=== PATIENT | female | born 1935 | race Caucasian/White ===

== ENCOUNTER → 2016-10-21 | Outpatient (CLI) | payer OTHER, MEDICARE ==
[~2016-10-21] MED LIST: APIX1TAB3 PO; BIOT1CAP3 PO; BIOTCAP2 PO; DABI150C PO; DMD20 PO; FLUO20CA35 PO; LEVO75TA PO; LISI-461 PO; LORA-741 PO; MULT-506 PO; POTA10CA28 PO; SYN75 PO; TORS20TA2 PO; TPRSR/25 PO; TYLOTC500 PO
--- NOTE | 2016-10-21 16:40 | MAMMOGRAPHY REPORT ---
BILATERAL DIGITAL SCREENING MAMMOGRAM WITH CAD: 10/21/2016 CLINICAL HISTORY: Routine screening. Patient has no complaints. TECHNIQUE: Current study was also evaluated with a Computer Aided Detection (CAD) system. Bilatera l CC and MLO views were obtained. COMPARISON: Comparison is made to exams dated: 05/21/2014 mammogram, 07/10/2012 mammogram, 07/07/2011 m ammogram, 07/06/2010 mammogram - [facility], and 07/03/2009. BREAST COMPOSITION: There are scattered areas of fibroglandular density in both breasts. FINDINGS: There is a nodular 5 mm asymmetry seen within the left lateral breast on the cc view only , which may represent normal overlapping fibroglandular tissue although spot compression tomosynthes is views and possible breast ultrasound are recommended for further evaluation. The remainder of both breasts are stable compared to prior exams, without suspicious masses, calcifi cations, or areas of architectural distortion noted. Bilateral benign-appearing calcifications, pre dominantly vascular calcifications, are again noted. IMPRESSION: ACR BI-RADS CATEGORY 0: INCOMPLETE EVALUATION: NEED ADDITIONAL IMAGING EVALUATION Left lateral breast asymmetry, for which additional imaging evaluation is recommended. The patient will be called to schedule an appointment. Approximately 10% of breast cancers are not detected with mammography. A negative mammographic repor t should not delay biopsy if a clinically suggestive mass is present. Vera Ascencio M.D. ah/:10/21/2016 15:50:35 Transfer Car Operator: Ct Shahid RT(R)(M), [facility] letter sent: Addl Imaging 0 BI-RADS Code: ACR BI-RADS Category 0: Incomplete Evaluation: Need Additional Imaging Evaluation
== END | disposition home or self-care (01) ==
LOC: C.MAMM 10:58
PROVIDERS: ATTEND Internal Medicine
DX: Z12.31 Encounter for screening mammogram for malignant neoplasm of breast (principal); R92.8 Other abnormal and inconclusive findings on diagnostic imaging of breast

== ENCOUNTER → 2016-10-21 | Outpatient (CLI) | payer OTHER, MEDICARE | END | disposition home or self-care (01) | LOC: C.LABSPEC 12:15 | PROVIDERS: ATTEND Internal Medicine | DX: R19.4 Change in bowel habit (principal) ==

== ENCOUNTER → 2016-11-04 | Outpatient (CLI) | payer OTHER, MEDICARE ==
[~2016-11-04] MED LIST changes: -LORA-741 PO
--- NOTE | 2016-11-04 14:17 | MAMMOGRAPHY REPORT ---
UNILATERAL LEFT DIGITAL DIAGNOSTIC MAMMOGRAM TOMOSYNTHESIS AND TARGETED LEFT ULTRASOUND: 11/04/2016 CLINICAL HISTORY: Callback from screening mammogram for left breast asymmetry. TECHNIQUE: Breast tomosynthesis in addition to standard 2D mammography was performed. Left CC and MLO 2-D and tomosynthesis spot compression views were obtained. COMPARISON: Comparison is made to exams dated: 10/21/2016 mammogram, 05/21/2014 mammogram, 07/10/2012 ma mmogram, 07/07/2011 mammogram, 07/06/2010 mammogram - [facility], and 07/03/2009. BREAST COMPOSITION: There are scattered areas of fibroglandular density in the left breast. FINDINGS: The previously described nodular asymmetry seen within the left lateral breast on the CC view only effaces to a baseline appearance on the additional views, and is felt to represent normal fibroglandular tissue. No discrete mammographic mass or other suspicious finding is seen on the [place] osynthesis images. Targeted ultrasound was performed of the left lateral breast in the region of the mammographic asymm etry. Sonographically normal tissue is seen, without evidence of a mass or other suspicious sonogra phic abnormality. IMPRESSION: ACR BI-RADS CATEGORY 2: BENIGN, TARGETED ULTRASOUND ACR BI-RADS CATEGORY 2: BENIGN The left breast asymmetry effaces on the additional views, without corresponding sonographic abnorma lity evident. The asymmetry is benign and compatible with normal fibroglandular tissue. There is n o mammographic or targeted sonographic evidence of malignancy. A 1 year screening mammogram is recom mended. The patient has been verbally notified of the results. Approximately 10% of breast cancers are not detected with mammography. A negative mammographic repor t should not delay biopsy if a clinically suggestive mass is present. Vera Ascencio M.D. ah/:11/04/2016 10:04:22 Foundry Supervisor: Ct PALACIOS(Leslie)(Ana), [facility] letter sent: Normal 1/2 BI-RADS Code: ACR BI-RADS Category 2: Benign Ultrasound BI-RADS: ACR BI-RADS Category 2: Benign
== END | disposition home or self-care (01) ==
LOC: C.MAMM 09:30
PROVIDERS: ATTEND Internal Medicine
DX: R92.8 Other abnormal and inconclusive findings on diagnostic imaging of breast (principal)

== ENCOUNTER → 2016-11-15 | Outpatient (CLI) | payer OTHER, MEDICARE ==
[2016-11-15 14:47] LABS: HEMATOCRIT 43.9 % (37-47); MEAN CELL VOLUME 90.1 fL (80-100); MEAN CORPUSCULAR HGB CONC 33.3 g/dl (32-36); MEAN PLATELET VOLUME 9.9 fL (7.4-10.4); PLATELET COUNT 244 K/uL (130-400); RED BLOOD COUNT 4.87 M/uL (4.2-5.4); WHITE BLOOD COUNT 5.88 K/uL (4.8-10.8)
[2016-11-15 17:17] LABS: BLOOD UREA NITROGEN 22 mg/dl (7-18); GLUCOSE 114 mg/dl (70-99)
[2016-11-15 17:18] LABS: BUN/CREATININE RATIO 15.7 (10-20); CALCIUM 9.5 mg/dl (8.5-10.1); CARBON DIOXIDE 26 mmol/L (21-32); CHLORIDE 103 mmol/L (98-107); POTASSIUM 4.2 mmol/L (3.5-5.1); SODIUM 140 mmol/L (136-145)
[2016-11-15 17:23] LABS: ALB/GLOB RATIO 0.9 (0.9-2); ALKALINE PHOSPHATASE 95 U/L (45-117); ALT/SGPT 23 U/L (12-78); AST/SGOT 21 U/L (15-37)
== END | disposition home or self-care (01) ==
LOC: C.LAB1850 13:55
PROVIDERS: ATTEND Internal Medicine Cardiovascular Disease
DX: I10 Essential (primary) hypertension (principal); I50.32 Chronic diastolic (congestive) heart failure; I48.91 Unspecified atrial fibrillation; R07.89 Other chest pain; Z79.01 Long term (current) use of anticoagulants; Z51.81 Encounter for therapeutic drug level monitoring

== ENCOUNTER 2017-01-09 12:34 | Emergency (ER) | payer OTHER, MEDICARE ==
[~2017-01-09] VITALS: Ht 162.6 cm; Wt 101.0 kg
[~2017-01-09 12:34] MED LIST changes: -APIX1TAB3 PO; -BIOT1CAP3 PO; -LEVO75TA PO; -TORS20TA2 PO
[2017-01-09 12:40] VITALS: TEMP 36.8; Ht 162.6 cm; Wt 101.0 kg
--- NOTE | 2017-01-09 13:05 | EMERGENCY ROOM VISIT NOTE ---
History Report prepared by Jair: Janel Harper Under the Supervision of: Dr. Yuan Martins D.O. First contact with patient: 12:50 Chief Complaint: BLEEDING Stated Complaint: BLEEDING Nursing Triage Summary: Triage note: pt reports "i went to the bathroom this mornin and wipes and noticed some blood but i have a small hemorhoid and then i took a shower and wiped between my legs and there was blood on the towel." pt reports she takes a blood thinner daily. pt reports the believes bleeding is vaginal. 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 The patient states that this morning she noticed that she had some bleeding that she believed was vaginal when she was going to the bathroom and then after she showered she noticed more blood. The patient states that she takes a blood thinner causing her to be concerned and come into the ED today. The patient denies any abdominal pain, pelvic pain, nausea, vomiting or leg swelling. The patient states that she takes Metoprol and lisinopril for her chronic atrial fibrillation. The patient states that has a medical history including CHF and arthritis. The patient states that she has never had a hysterectomy but has had a cholecystectomy as well as three caesarean sections. Source of History: patient Onset: few hours DRILLING RIG OPERATOR Position: other (vaginal) Timing: other (episode) Associated Symptoms: No abdominal pain, No nausea, No vomiting Note: Patient denies pelvic pain, leg swelling. Review of Systems See HPI for pertinent positives & negatives. A total of 10 systems reviewed and were otherwise negative. Past Medical & Surgical Medical Problems: (1) Atrial fibrillation (2) HTN (hypertension) Surgical Problems: (1) Hx of cholecystectomy Family History FH: HTN (hypertension) FH: gallbladder disease FH: heart disease Social History Smoking Status: Never Smoker Marital Status: Housing Status: lives alone Occupation Status: retired Current/Historical Medications Scheduled Acetaminophen (Tylenol), 500 MG PO BID Apixaban (Eliquis), 5 MG PO BID Biotin (Biotin), 5,000 MCG PO DAILY Fluoxetine (Prozac), 20 MG PO DAILY Levothyroxine Sodium (Synthroid), 75 MCG PO DAILY Lisinopril (Zestril), 10 MG PO DAILY Metoprolol Succinate (Metoprolol Succinate ER), 25 MG PO DAILY Multivitamin (Multivitamin), 1 TAB PO DAILY Potassium Chloride (Micro-K Ext Rel), 10 MEQ PO DAILY Torsemide (Demadex), 20 MG PO DAILY Allergies Coded Allergies: Latex1 -Allergic Contact Dermititis (Verified Allergy, Intermediate, RASH , HIVES, 01/09/17) Meperidine (Verified Allergy, Unknown, ITCH, 01/09/17) Morphine (Verified Allergy, Unknown, 0, 01/09/17) CONFUSION Oxycodone (Verified Allergy, Unknown, 0, 01/09/17) CONFUSION Codeine (Verified Adverse Reaction, Mild, NAUSEA, 01/09/17) CONFUSION Physical Exam Vital Signs Date Time Temp Pulse Resp B/P Pulse Ox O2 Delivery O2 Flow Rate FiO2 01/09/17 15:15 78 18 148/89 01/09/17 14:59 71 27 01/09/17 14:54 73 27 01/09/17 14:49 72 27 01/09/17 14:44 72 21 01/09/17 14:39 72 22 01/09/17 14:34 88 18 140/89 94 01/09/17 14:34 82 20 140/89 95 Room Air 01/09/17 14:29 72 15 01/09/17 14:27 79 01/09/17 12:40 36.8 84 18 151/88 98 Room Air Physical Exam GENERAL: Patient is awake, alert, and in no acute distress. Patient is resting comfortably and showing no signs of anxiety EYES: The conjunctivae are clear. The pupils are round and reactive. EARS, NOSE, MOUTH AND THROAT: The nose is without any evidence of any deformity. Mucous membranes are moist tongue is midline NECK: The neck is nontender and supple. RESPIRATORY: Normal respiratory effort is noted there is no evidence of wheezing rhonchi or rales CARDIOVASCULAR: Tachycardic and irregular, no definite murmur noted to auscultation. no rubs or gallops normal S1 normal S2 GASTROINTESTINAL: The abdomen is soft. Bowel sounds are present in all quadrants. Abdomen is nontender RECTAL: reveal light brown stool that was heme negative. External hemorrhoids noted with no active bleeding. PELVIC: There was dried blood noted on external genitalia. Digital exam did not reveal active bleeding. MUSCULOSKELETAL/EXTREMITIES: There is no evidence of gross deformity full range of motion is noted in the hips and shoulders SKIN: There is no obvious evidence of any rash. There are no petechiae, pallor or cyanosis noted. NEUROLOGIC: Patient is awake alert and oriented x3 strength is symmetric patellar reflexes are 2+ bilaterally Medical Decision & Procedures ER Provider Diagnostic Interpretation: US results as stated below per my review and radiologist interpretation. PELVIC ULTRASOUND CLINICAL HISTORY: Vaginal bleeding. COMPARISON STUDY: Pelvic ultrasound March 07, [address] of the pelvis April 18, 2015. TECHNIQUE: Transabdominal sonography of the pelvis was performed. The patient deferred transvaginal imaging. FINDINGS: This exam was markedly compromised due to suboptimal penetration related to lack of transvaginal imaging. The uterus measured approximately 7.6 x 3.8 x 6 cm. Note was made of an apparent 4.2 cm abnormality within the uterine fundus. The appearance is similar to pelvic ultrasound March 07, 2015. This is indeterminate. The endometrium is not well evaluated on this exam. The left ovary was not visualized. The right ovary was unremarkable. There is no free fluid. No adnexal masses were identified. IMPRESSION: 1. Study significantly compromised due to lack of transvaginal imaging. 2. Nearly nondiagnostic evaluation of the uterus. The endometrium is not well evaluated on this exam. Equivocal 4.2 cm fundal mass which appears similar to pelvic ultrasound of March 07, 2015. 3. Nonvisualization of the left ovary. Electronically signed by: Jeyson Melendez M.D. 01/09/2017 2:24 PM Dictated Date/Time: 01/09/2017 2:20 PM Laboratory Results 01/09/17 13:10 Red Blood Count 4.80, Mean Corpuscular Volume 90.4, Mean Corpuscular Hemoglobin 30.8, Mean Corpuscular Hemoglobin Concent 34.1, Mean Platelet Volume 10.1, Neutrophils (%) (Auto) 62.3, Lymphocytes (%) (Auto) 25.4, Monocytes (%) (Auto) 8.9, Eosinophils (%) (Auto) 2.4, Basophils (%) (Auto) 0.8, Neutrophils # (Auto) 3.90, Lymphocytes # (Auto) 1.59, Monocytes # (Auto) 0.56, Eosinophils # (Auto) 0.15, Basophils # (Auto) 0.05 01/09/17 13:10 Test 01/09/17 13:00 01/09/17 13:10 Urine Color YELLOW Urine Appearance CLEAR (CLEAR) Urine pH 6.5 (4.5-7.5) Urine Specific [place] 1.008 (1.000-1.030) Urine Protein NEG (NEG) Urine Glucose (UA) NEG (NEG) Urine Ketones NEG (NEG) Urine Occult Blood 2+ (NEG) Urine Nitrite NEG (NEG) Urine Bilirubin NEG (NEG) Urine Urobilinogen NEG (NEG) Urine Leukocyte Esterase NEG (NEG) Urine WBC (Auto) 0 /hpf (0-5) Urine RBC (Auto) 10-30 /hpf (0-4) Urine Hyaline Casts (Auto) 0 /lpf (0-5) Urine Epithelial Cells (Auto) 0-5 /lpf (0-5) Urine Bacteria (Auto) NEG (NEG) White Blood Count 6.26 K/uL (4.8-10.8) Red Blood Count 4.80 M/uL (4.2-5.4) Hemoglobin 14.8 g/dL (12.0-16.0) Hematocrit 43.4 % (37-47) Mean Corpuscular Volume 90.4 fL (80-100) Mean Corpuscular Hemoglobin 30.8 pg (25-34) Mean Corpuscular Hemoglobin Concent 34.1 g/dl (32-36) Platelet Count 224 K/uL (130-400) Mean Platelet Volume 10.1 fL (7.4-10.4) Neutrophils (%) (Auto) 62.3 % Lymphocytes (%) (Auto) 25.4 % Monocytes (%) (Auto) 8.9 % Eosinophils (%) (Auto) 2.4 % Basophils (%) (Auto) 0.8 % Neutrophils # (Auto) 3.90 K/uL (1.4-6.5) Lymphocytes # (Auto) 1.59 K/uL (1.2-3.4) Monocytes # (Auto) 0.56 K/uL (0.11-0.59) Eosinophils # (Auto) 0.15 K/uL (0-0.5) Basophils # (Auto) 0.05 K/uL (0-0.2) RDW Standard Deviation 47.3 fL (36.4-46.3) RDW Coefficient of Variation 14.3 % (11.5-14.5) Immature Granulocyte % (Auto) 0.2 % Immature Granulocyte # (Auto) 0.01 K/uL (0.00-0.02) Prothrombin Time 13.4 SECONDS (9.0-12.0) Prothromb Time International Ratio 1.2 (0.9-1.1) Activated Partial Thromboplast Time 28.7 SECONDS (21.0-31.0) Partial Thromboplastin Ratio 1.1 Anion Gap 6.0 mmol/L (3-11) Est Creatinine Clear Calc Drug Dose 37.7 ml/min Estimated GFR () 41.3 Estimated GFR (Non- 35.6 BUN/Creatinine Ratio 19.0 (10-20) Calcium Level 9.1 mg/dl (8.5-10.1) Total Bilirubin 0.6 mg/dl (0.2-1) Direct Bilirubin 0.2 mg/dl (0-0.2) Aspartate Amino Transf (AST/SGOT) 19 U/L (15-37) Alanine Aminotransferase (ALT/SGPT) 23 U/L (12-78) Alkaline Phosphatase 94 U/L (45-117) Total Protein 7.5 gm/dl (6.4-8.2) Albumin 3.5 gm/dl (3.4-5.0) Laboratory results per my review. ED Course 1251: The patient was evaluated in room A3. A complete history and physical examination were performed. 1450: I discussed the case with Dr. Orozco INVERTED BLOCK OPERATOR. She states that the patient can follow up in the office. 1500: Upon reevaluation, the patient is resting comfortably. I discussed the results and treatment plan with her. She verbalized agreement of the treatment plan. The patient was discharged home. Medical Decision Differential diagnosis: Etiologies such as ectopic , dysfunction uterine bleeding, bleeding dyscrasia, trauma, infection, as well as others were entertained. Nursing notes reviewed. Additional history is obtained from the patient's family members. The patient's previous radiographic studies were reviewed. The patient is a 81-year-old female who presented to the emergency department for vaginal bleeding. The patient currently takes anticoagulation for atrial fibrillation. She did not have ongoing bleeding. The bleeding appeared to be vaginal in nature. The patient's vital signs and hemoglobin were stable. The patient was found have a possible uterine abnormality on ultrasound which could explain the patient's bleeding. I discussed the patient's laboratory and radiographic studies with her and her family members. I also discussed her case with the on-call [facility] INVERTED BLOCK OPERATOR physician. At this time they have agreed to see the patient in follow-up for possible biopsy or further testing. The patient was encouraged to continue all medications as prescribed. She was also encouraged to follow-up with INVERTED BLOCK OPERATOR this week. She was also encouraged to return to the emergency apartment immediately if symptoms change worsen or the need arises including ongoing and worsening bleeding dizziness upon standing or if any other worrisome symptoms develop. Consults Time Called: [phone] Consulting Physician: Dr. Orozco INVERTED BLOCK OPERATOR Returned Call: [phone] I discussed the case with Dr. Orozco INVERTED BLOCK OPERATOR. She states that the patient can follow up in the office. Impression Primary Impression: Dysfunctional uterine bleeding Scribe Attestation The scribe's documentation has been prepared under my direction and personally reviewed by me in its entirety. I confirm that the note above accurately reflects all work, treatment, procedures, and medical decision making performed by me. Departure Information Dispostion Home / Self-Care Referrals Phillip Kim M.D. (PCP) Forms HOME CARE DOCUMENTATION FORM, IMPORTANT VISIT INFORMATION Patient Instructions My [facility] [address] Additional Instructions Continue all medications as prescribed. Call the INVERTED BLOCK OPERATOR physician in the morning to schedule a follow-up appointment.
[2017-01-09 13:23] LABS: BASO % 0.8 %; BASO ABS # 0.05 K/uL (0-0.2); COMPLETE YES; EOS % 2.4 %; HEMATOCRIT 43.4 % (37-47); IG% 0.2 %; LYMPH % 25.4 %; LYMPH ABS # 1.59 K/uL (1.2-3.4); MEAN CELL VOLUME 90.4 fL (80-100); MEAN CORPUSCULAR HEMOGLOBIN 30.8 pg (25-34); MEAN CORPUSCULAR HGB CONC 34.1 g/dl (32-36); MEAN PLATELET VOLUME 10.1 fL (7.4-10.4); MONO % 8.9 %; NEUT % 62.3 %; PLATELET COUNT 224 K/uL (130-400); WHITE BLOOD COUNT 6.26 K/uL (4.8-10.8)
[2017-01-09 13:24] LABS: URINE APPEARANCE CLEAR (CLEAR); URINE BILIRUBIN NEG (NEG); URINE COLOR YELLOW; URINE EPITHELIAL CELL AUTO 0-5 /lpf (0-5); URINE NITRITE NEG (NEG); URINE PH 6.5 (4.5-7.5); URINE SPECIFIC GRAVITY 1.008 (1.000-1.030); UROBILINOGEN NEG (NEG)
[2017-01-09 13:25] LABS: MANUAL MICROSCOPIC REQUIRED? NO; REVIEW REQ? NO
[2017-01-09] MEDS ORDERED: LEVO75TA PO (13:25)
[2017-01-09] MEDS ORDERED: TORS20TA2 PO (13:25)
[2017-01-09] MEDS ORDERED: BIOT1CAP3 PO (13:26)
[2017-01-09] MEDS ORDERED: APIX1TAB3 PO (13:26)
[2017-01-09 13:34] LABS: INR 1.2 (0.9-1.1); PARTIAL THROMBOPLASTIN RATIO 1.1; PROTHROMBIN TIME (PATIENT) 13.4 SECONDS (9.0-12.0)
[2017-01-09 13:41] LABS: CALCIUM 9.1 mg/dl (8.5-10.1); CREATININE 1.4 mg/dl (0.60-1.20); POTASSIUM 4.4 mmol/L (3.5-5.1)
--- NOTE | 2017-01-09 14:25 | DIAGNOSTIC IMAGING REPORT ---
PELVIC ULTRASOUND CLINICAL HISTORY: Vaginal bleeding. COMPARISON STUDY: Pelvic ultrasound March 07, [address] of the pelvis April 18, 2015. TECHNIQUE: Transabdominal sonography of the pelvis was performed. The patient deferred transvaginal imaging. FINDINGS: This exam was markedly compromised due to suboptimal penetration related to lack of transvaginal imaging. The uterus measured approximately 7.6 x 3.8 x 6 cm. Note was made of an apparent 4.2 cm abnormality within the uterine fundus. The appearance is similar to pelvic ultrasound March 07, 2015. This is indeterminate. The endometrium is not well evaluated on this exam. The left ovary was not visualized. The right ovary was unremarkable. There is no free fluid. No adnexal masses were identified. IMPRESSION: 1. Study significantly compromised due to lack of transvaginal imaging. 2. Nearly nondiagnostic evaluation of the uterus. The endometrium is not well evaluated on this exam. Equivocal 4.2 cm fundal mass which appears similar to pelvic ultrasound of March 07, 2015. 3. Nonvisualization of the left ovary. Electronically signed by: Jeyson Melendez M.D. 01/09/2017 2:24 PM Dictated Date/Time: 01/09/2017 2:20 PM
[2017-01-09 14:34] VITALS: O2SAT 94
[2017-01-09 15:15] VITALS: BP 148/89; PULSE 78
[2017-07-20] MEDS ORDERED: LORA-741 PO (08:08)
[2017-07-20] MEDS ORDERED: LISI-461 PO ×2 (08:11→15:25)
== END 2017-01-09 15:17 | disposition home or self-care (01) ==
LOC: C.EDB 12:36 → C.EDA 15:17
DX: N93.8 Other specified abnormal uterine and vaginal bleeding (principal); I10 Essential (primary) hypertension; I48.91 Unspecified atrial fibrillation; Z90.49 Acquired absence of other specified parts of digestive tract; Z79.899 Other long term (current) drug therapy; Z88.5 Allergy status to narcotic agent; Z88.8 Allergy status to other drugs, medicaments and biological substances; Z91.040 Latex allergy status; Z82.49 Family history of ischemic heart disease and other diseases of the circulatory system; Z83.79 Family history of other diseases of the digestive system

== ENCOUNTER → 2017-01-31 | Outpatient (CLI) | payer OTHER, MEDICARE ==
[~2017-01-31] MED LIST changes: +APIX1TAB3 PO; +BIOT1CAP3 PO; -BIOTCAP2 PO; -DABI150C PO; -DMD20 PO; +LEVO75TA PO; +LORA-741 PO; -SYN75 PO; +TORS20TA2 PO
== END | disposition home or self-care (01) ==
LOC: C.PATHSPEC 10:53
PROVIDERS: ATTEND Obstetrics & Gynecology
DX: N95.0 Postmenopausal bleeding (principal)

== ENCOUNTER → 2017-03-31 | Outpatient (CLI) | payer OTHER, MEDICARE | END | disposition home or self-care (01) | LOC: C.LAB 14:15 | PROVIDERS: ATTEND Obstetrics & Gynecology | DX: N95.0 Postmenopausal bleeding (principal); N83.209 Unspecified ovarian cyst, unspecified side ==

== ENCOUNTER → 2017-05-31 | Outpatient (CLI) | payer OTHER, MEDICARE ==
--- NOTE | 2017-05-31 17:01 | DIAGNOSTIC IMAGING REPORT ---
CHEST 2 VIEWS ROUTINE CLINICAL HISTORY: Atypical chest pain and shortness of breath COMPARISON STUDY: 08/23/2015 FINDINGS: The heart is enlarged. There is no focal pulmonary consolidation. There is mild interstitial prominence but no overt failure.. There are no pleural effusions. There is minor basilar atelectasis.[ IMPRESSION: Cardiomegaly. No evidence of focal pulmonary consolidation Electronically signed by: Jose Leo M.D. 05/31/2017 5:00 PM Dictated Date/Time: 05/31/2017 4:59 PM
== END | disposition home or self-care (01) ==
LOC: C.RAD 16:26
PROVIDERS: ATTEND Internal Medicine
DX: R06.00 Dyspnea, unspecified (principal); I51.7 Cardiomegaly; E03.9 Hypothyroidism, unspecified; R53.83 Other fatigue; I48.91 Unspecified atrial fibrillation

== ENCOUNTER → 2017-05-31 | Outpatient (CLI) | payer OTHER, MEDICARE ==
[2017-05-31 18:14] LABS: BASO % 0.6 %; BASO ABS # 0.04 K/uL (0-0.2); COMPLETE YES; EOS % 1.7 %; HEMATOCRIT 44.8 % (37-47); IG% 0.2 %; LYMPH % 28.8 %; LYMPH ABS # 1.91 K/uL (1.2-3.4); MEAN CELL VOLUME 90.7 fL (80-100); MEAN CORPUSCULAR HEMOGLOBIN 30.8 pg (25-34); MEAN CORPUSCULAR HGB CONC 33.9 g/dl (32-36); MEAN PLATELET VOLUME 10.7 fL (7.4-10.4); MONO % 9.3 %; NEUT % 59.4 %; PLATELET COUNT 216 K/uL (130-400); RED BLOOD COUNT 4.94 M/uL (4.2-5.4); WHITE BLOOD COUNT 6.64 K/uL (4.8-10.8)
[2017-05-31 18:21] LABS: ALT/SGPT 28 U/L (12-78); BLOOD UREA NITROGEN 19 mg/dl (7-18); BUN/CREATININE RATIO 14.3 (10-20); CALCIUM 9.8 mg/dl (8.5-10.1); CARBON DIOXIDE 30 mmol/L (21-32); CHLORIDE 105 mmol/L (98-107); GLUCOSE 95 mg/dl (70-99); MAGNESIUM 2.2 mg/dl (1.8-2.4); POTASSIUM 3.8 mmol/L (3.5-5.1); SODIUM 140 mmol/L (136-145)
[2017-05-31 18:31] LABS: ALB/GLOB RATIO 0.9 (0.9-2); ALKALINE PHOSPHATASE 120 U/L (45-117); AST/SGOT 28 U/L (15-37)
== END | disposition home or self-care (01) ==
LOC: C.LABSPEC 17:48
PROVIDERS: ATTEND Internal Medicine
DX: E03.9 Hypothyroidism, unspecified (principal); R53.83 Other fatigue; I48.91 Unspecified atrial fibrillation

== ENCOUNTER → 2017-06-09 | Outpatient (CLI) | payer OTHER, MEDICARE ==
[2017-06-09 09:36] LABS: HEMATOCRIT 46.6 % (37-47); MEAN CORPUSCULAR HEMOGLOBIN 30.9 pg (25-34); MEAN CORPUSCULAR HGB CONC 33.9 g/dl (32-36); MEAN PLATELET VOLUME 10.5 fL (7.4-10.4); PLATELET COUNT 216 K/uL (130-400); RED BLOOD COUNT 5.12 M/uL (4.2-5.4)
[2017-06-09 09:46] LABS: BLOOD UREA NITROGEN 18 mg/dl (7-18); BUN/CREATININE RATIO 12.6 (10-20); CALCIUM 9.3 mg/dl (8.5-10.1); CARBON DIOXIDE 30 mmol/L (21-32); CHLORIDE 105 mmol/L (98-107); GLUCOSE 116 mg/dl (70-99); POTASSIUM 4.1 mmol/L (3.5-5.1); SODIUM 141 mmol/L (136-145)
== END | disposition home or self-care (01) ==
LOC: C.LAB1850 08:28
PROVIDERS: ATTEND Internal Medicine Cardiovascular Disease
DX: I10 Essential (primary) hypertension (principal); I50.32 Chronic diastolic (congestive) heart failure; R06.09 Other forms of dyspnea; I48.91 Unspecified atrial fibrillation; R07.89 Other chest pain; Z79.01 Long term (current) use of anticoagulants

== ENCOUNTER → 2017-06-30 | Outpatient (CLI) | payer OTHER, MEDICARE ==
--- NOTE | 2017-07-01 06:58 | PULMONARY FUNCTION TEST ---
CLINICAL DATA: A 81-year-old female with a weight of 222 pounds and height of 64 inches, referred by Dr. Vergara for evaluation of dyspnea. Spirometry pre- and post-bronchodilator and DLCO was performed along with oxygen saturation at rest and with exercise. Lung volumes were attempted but could not be completed by the patient because of technical reasons. FINDINGS: Pre-bronchodilator spirometry was within normal limits. FVC was 87% of predicted. FEV1 was 90% of predicted. [id number] was 83% of predicted. There was no significant improvement after inhaled bronchodilator. Diffusion capacity was moderately reduced at 58% of predicted with a normal DLCO/VA. The patient had a resting O2 saturation of 97%. After ambulating for 6 minutes, the patient had an O2 saturation of 96% while exerting and after rest, 98%. IMPRESSION: No evidence of significant restrictive or obstructive lung disease on spirometry. Diffusion capacity was moderately reduced. Normal O2 saturation at rest and with exercise. MTDD
== END | disposition home or self-care (01) ==
LOC: C.RC 12:57
PROVIDERS: ATTEND Internal Medicine
DX: R06.02 Shortness of breath (principal)

== ENCOUNTER → 2017-07-08 | Outpatient (CLI) | payer OTHER, MEDICARE ==
[2017-07-08 11:25] LABS: FERRITIN 62.1 ng/ml (8.0-388.0); THYROID STIMULATING HORMONE 0.782 uIu/ml (0.300-4.500)
[2017-07-12 06:12] LABS: ALBUMIN 3.5 G/DL (3.8-4.8); CREATININE UR 257 MG/DL (20-320); GAMMA GLOBULIN 1.1 G/DL (0.8-1.7); TOTAL PROTEIN 6.7 G/DL (6.2-8.3)
== END | disposition home or self-care (01) ==
LOC: C.LAB1850 09:29
PROVIDERS: ATTEND Internal Medicine Cardiovascular Disease
DX: I42.9 Cardiomyopathy, unspecified (principal); I50.42 Chronic combined systolic (congestive) and diastolic (congestive) heart failure

== ENCOUNTER → 2017-07-19 | Outpatient (CLI) | payer OTHER, MEDICARE ==
[2017-07-19 17:43] LABS: HEMATOCRIT 43.6 % (37-47); MEAN CORPUSCULAR HEMOGLOBIN 29.5 pg (25-34); MEAN CORPUSCULAR HGB CONC 32.1 g/dl (32-36); MEAN PLATELET VOLUME 10.7 fL (7.4-10.4); PLATELET COUNT 210 K/uL (130-400); RED BLOOD COUNT 4.74 M/uL (4.2-5.4); WHITE BLOOD COUNT 5.43 K/uL (4.8-10.8)
[2017-07-19 17:55] LABS: INR 1.2 (0.9-1.1); PROTHROMBIN TIME (PATIENT) 12.7 SECONDS (9.0-12.0)
[2017-07-19 17:56] LABS: BLOOD UREA NITROGEN 22 mg/dl (7-18); BUN/CREATININE RATIO 14.5 (10-20); CALCIUM 9.2 mg/dl (8.5-10.1); CARBON DIOXIDE 29 mmol/L (21-32); CHLORIDE 105 mmol/L (98-107); GLUCOSE 88 mg/dl (70-99); POTASSIUM 4.1 mmol/L (3.5-5.1); SODIUM 140 mmol/L (136-145)
== END | disposition home or self-care (01) ==
LOC: C.LABBFT 14:20
PROVIDERS: ATTEND Internal Medicine Cardiovascular Disease
DX: Z01.818 Encounter for other preprocedural examination (principal)

== ENCOUNTER → 2017-07-20 | Day surgery (SDC) | payer OTHER, MEDICARE ==
[~2017-07-20] VITALS: Ht 162.6 cm; Wt 101.3 kg
[~2017-07-20] MED LIST changes: +ACETAMINOPHEN 325 MG TAB PO PRN; +ASPIRIN 81 MG CHEW ONE; +FENTANYL CITRATE INJ 50 MCG/1 ML 2 ML VIAL ONE; +HEPARIN SOD (PORCINE) 1000 UNIT/ML 10 ML VIAL ONE; +MIDAZOLAM HCL 1 MG/ML 2ML VIAL ONE; +NITROGLYCERIN/D5W 100MCG/ML 20ML SYR ONE; +NiCARDipine HCL INJ 2.5 MG/ML 10 ML AMP ONE; +ONDANSETRON INJ 2 MG/ML 2 ML VIAL IV PRN; +SODIUM CHLORIDE 0.9% 1000ML 1,000 ML IV SCH; +SODIUM CHLORIDE 0.9% 1000ML 250 ML IV PRN
[2017-07-20 07:27] VITALS: BP 132/70; PULSE 73; TEMP 36.8; O2SAT 96; Ht 162.6 cm; Wt 101.3 kg
--- NOTE | 2017-07-20 12:31 | Procedure Note ---
Pre-Mod Sedation Assessment General Date of Moderate Sedation: Jul 20, 2017. Vital Signs: Vital Signs Past 12 Hours Date Time Temp Pulse Resp B/P (MAP) Pulse Ox O2 Delivery O2 Flow Rate FiO2 07/20/17 07:27 36.8 73 16 132/70 96 Room Air Review Cardiovascular: no murmur Abdomen: non tender, soft Lungs: lungs clear Pre-Sedation Airway Assessment Oral Cavity: Dentures Short Thick Neck: No Hx of Sleep Apnea: No Smoking Status: Former Smoker Procedure Planning Contraindications-for Mod Sed: None Yes Notes The planned sedation has been discussed with the patient and consent obtained. I have identified the patient, determined the appropriateness of sedation and have assessed the patient immediately prior to the procedure. All medicine(s) and interventions are by my order.
--- NOTE | 2017-07-20 12:31 | History & Physical Bridge Note ---
H&P Re-Evaluation Bridge Note: I have examined the patient, reviewed the History & Physical and in the interval since the performance of the History & Physical I have noted the following changes of clinical significance: No changes noted
--- NOTE | 2017-07-20 14:57 | Procedure Note ---
Post-Mod Sedation Assessment General Date of Moderate Sedation Jul 20, 2017. Vital Signs: Vital Signs Past 12 Hours Date Time Temp Pulse Resp B/P (MAP) Pulse Ox O2 Delivery O2 Flow Rate FiO2 07/20/17 14:35 63 16 130/68 (88) 95 Room Air 07/20/17 14:20 36.6 63 16 132/69 (90) 94 Room Air 07/20/17 07:27 36.8 73 16 132/70 96 Room Air Review - Discharge Criteria Vital Signs Stable: Yes Alert/Oriented/Conversant: Yes Returned to Baseline Mental St: Yes Nausea Absent/Minimal: Yes Pain/Discomfort/Absent/Minimal: Yes Normal/Baseline Respirations: Yes Active Bleeding?: No
--- NOTE | 2017-07-20 15:23 | Cardiac Catheterization ---
Procedure Note Procedure Date Jul 20, 2017. Pre-Procedure Diagnosis Cardiomyopathy AUC Score 7 Post-Procedure Diagnosis Normal Coronary Arteries, Elevated Intracardiac Pressures Procedure(s) Performed Coronary Angiography, Left Heart Cath, Right Heart Cath It Support Specialist Dr. Hathaway Repair Department Supervisor(s) Tr Estimated Blood Loss < 30 ml Medication(s) Fentanyl, Heparin, Nicardipine, Versed, Lidocaine 1% Summary of Findings Coronary angiography: 1. Left main coronary artery: The LMCA is long in length. No angiographic evidence of CAD. 2. Left anterior descending: The LAD is medium to large in caliber and extends to the apex. It gives rise to a very large and long D1. No significant CAD noted angiographically. 3. Circumflex: The circumflex vessel distally becomes a very small caliber AV groove vessel. Large caliber OM1 with lateral branches. No CAD noted within the circumflex system. 4. Ramus intermedius: The ramus intermedius vessel is a large caliber and long vessel with lateral branch. No CAD noted angiographically. 5. Right coronary artery: The RCA is large and dominant. It gives rise to a large PDA and large posterior lateral branch with medium caliber branch. No angiographic evidence of CAD within the RCA system. Left heart catheterization: 1. Left ventriculography was not performed to reduce contrast exposure. 2. No significant aortic stenosis. 3. Mildly elevated LVEDP; LVEDP 14mmHg (this is after approximately 6 hours of normal saline for prehydration at 125 milliliters/hour). Right heart catheterization: 1. Right heart catheterization was performed via the right brachiocephalic vein without a sheath. Seven [place] latex-free right heart catheter was easily passed over a wire. The balloon became nonfunctional while within the right heart and therefore a pulmonary capillary wedge pressure was unable to be obtained. PA oxygen saturation was collected, however there was a malfunction with the equipment and therefore PA O2 saturation is unavailable. 2. Moderate pulmonary hypertension. PA pressure 50/15 with a mean of 27mmHg. 3. Moderately elevated right ventricular pressure. RV pressure 50/1 with an RVEDP of 10mmHg. 4. Mildly elevated right atrial pressure. A-wave 12; V-wave 12; mean pressure 11mmHg. 5. Cardiac output via thermodilution was 3.6 L/min with a cardiac index of 1.8 L /min/m2. Procedural notes: 1. Selective coronary angiography of the left main coronary artery was performed successfully with AL1 6 [place] diagnostic catheter. 2. Selective coronary angiography of the RCA was performed successfully with JR4 6 [place] diagnostic catheter. Sedation start time: 1:02 p.m. Sedation end time: 2:18 p.m. Impression: 1. No CAD. 2. No aortic stenosis. 3. Mildly elevated LVEDP in the setting of holding diuretic and iatrogenic hydration. 4. Moderate pulmonary hypertension. 5. Left-sided filling pressures not significantly elevated to suggest the etiology of her significant subjective symptoms. Plan: 1. Continue medical therapy for mildly reduced LV systolic function. 2. Evaluation for noncardiac dyspnea. Hemodynamics Rest Ao: 134/59 Final Ao: 129/55 LV: 129/6/14 Recommendations Medical therapy and/or Counseling Specimens None Radiation Exposure (mGy) 1166 mGy. Fluoro time 16.4 min. Contrast (mls) 45 ml Procedural Complication(s) None Disposition [employer] Holding/Recovery ACC Data Cardiac Status Clinical evaluation leading to the procedure CAD Presntation: No Sxs, no angina Anginal Classification: No symptoms Heart Failure: No Cardiogenic Shock w/in 24Hrs: No Cardiac Arrest w/in 24Hrs: No Imaging studies past 6 months: Yes (echo) Stress studies past 6 months: No Standard Exercise Stress Test: No Stress Echocardiogram: No Stress Testing w/SPECT MPI: No Cardiac CTA: No Coronary Anatomy Dominant: Right Left Main (% Stenosis): Normal LAD (% Stenosis): Normal D1 (% Stenosis): Normal Circumflex (% Stenosis): Normal OM1 (% Stenosis): Normal RCA (% Stenosis): Normal R PDA (% Stenosis): Normal R PL1 (% Stenosis): Normal Ramus (% Stenosis): Normal Left Ventricular Angiography EF (%): n/a Diagnostic Physician's Name: Al Hathaway MD Status: Elective Closure Device Percutaneous Entry Location: Radial Closure Device: Radial Band Recommendations: Medical therapy and/or Counseling
--- NOTE | 2017-07-20 15:30 | Discharge Instructions ---
Discharge Instructions Date of Service Jul 20, 2017. Visit Reason for Visit: Cardiac catheterization to evaluate shortness of breath. Discharge Discharge Diagnosis / Problem: Nonischemic cardiomyopathy. Pulmonary hypertension. Discharge Goals Goal(s): Diagnostic testing Medications Restart Stopped Medication(s): Resume all your medications. No changes made today. Eliquis should be resumed tomorrow (07/21/17) morning. Activity Recommendations Activity Limitations: per Instructions/Follow-up section Anesthesia . Post Anesthesia Instructions: If you have had General Anesthesia or IV Sedation: * Do not drive today. * Resume driving when surgeon permits. * Do not make important decisions or sign legal documents today. * Call surgeon for: 1. Temperature elevations greater than 101 degrees F. 2. Uncontrollable pain. 3. Excessive bleeding. 4. Persistent nausea and vomiting. 5. Medication intolerance (nausea, vomiting or rash). * For nausea and vomiting use only clear liquids such as: tea, soda, bouillon until nausea subsides, then gradually increase diet as tolerated. * If you have any concerns or questions, call your surgeon's office. If physician is unavailable and it is an emergency, call 911 or go to the nearest emergency room. . Instructions / Follow-Up Instructions / Follow-Up Follow up: 1. Follow up with Dr. Hathaway on August 10, 2017 Wed at 08:45 AM. ACTIVITY RECOMMENDATIONS: Excess manipulation of the wrist should be avoided for the next 24-48 hours. * No lifting over 2 pounds (approximately a 1/2 gallon of milk) with the utilized arm for 24 hours. * No strenuous activity such as bowling or tennis for 3 days. * Keep the site of the procedure covered with a bandage for 24 hours. *You may shower the day after the procedure. Do not take a tub bath or submerge the puncture site in water for the next 3 days. *Do not operate any motorized equipment for 3 days. SPECIAL CARE INSTRUCTIONS: The site may be slightly bruised and sore following your procedure. Should any of the following occur, contact the DrNeda who performed your procedure. 1. Redness/inflammation, swelling, chills, or fever, or colored drainage at procedure site within 3-7 days after your procedure. 2. Coldness, discoloration, ongoing numbness, severe pain, or swelling. Expect mild tingling of hand and tenderness at the puncture site for up to three days. If this persists beyond three days, or other symptoms develop, notify the Dr. who performed your procedure. BLEEDING: If the procedure site on your wrist begins to bleed, do not panic 1. Place 1 or 2 fingers firmly just slightly above the insertion site to stop the bleeding. You may be able to feel your pulse as you hold pressure. 2. Lift your finger after 5 minutes to see if the bleeding has stopped. 3. Once the bleeding has stopped, gently wipe the wrist area clean with a bandage. * If the bleeding from your wrist does not stop after 10 minutes, or if there is a large amount of bleeding or spurting, call 911 (do not drive yourself to the hospital). SKIN IRRITATION: * You may experience some redness and/or swelling in the area where radiation was administered. If any skin irritation occurs, please contact your family physician. FOLLOW UP VISIT: Keep any scheduled doctor appointments. Diet Recommendations Recommended Home Diet: resume previous diet Pending Studies Studies pending at discharge: no Medical Emergencies . Who to Call and When: Medical Emergencies: If at any time you feel your situation is an emergency, please call 911 immediately. . Non-Emergent Contact Non-Emergency issues call your: Primary Care Provider, Sign Writer Letterer Or Painter . . "Provider Documentation" section prepared by Al Steward. .
[2017-07-20 16:55] VITALS: BP 122/60; PULSE 68; O2SAT 96
== END | disposition home or self-care (01) ==
LOC: C.CATH 06:35
PROVIDERS: ATTEND Internal Medicine Cardiovascular Disease
DX: I42.9 Cardiomyopathy, unspecified (principal); I50.42 Chronic combined systolic (congestive) and diastolic (congestive) heart failure; I48.91 Unspecified atrial fibrillation; I11.0 Hypertensive heart disease with heart failure; E03.9 Hypothyroidism, unspecified; F32.9 Major depressive disorder, single episode, unspecified; F41.9 Anxiety disorder, unspecified; Z98.890 Other specified postprocedural states; Z79.01 Long term (current) use of anticoagulants; Z90.89 Acquired absence of other organs; Z87.891 Personal history of nicotine dependence; Z82.49 Family history of ischemic heart disease and other diseases of the circulatory system; Z80.3 Family history of malignant neoplasm of breast; Z83.3 Family history of diabetes mellitus

== ENCOUNTER → 2017-08-10 | Outpatient (CLI) | payer OTHER, MEDICARE ==
[~2017-08-10] MED LIST changes: -ACETAMINOPHEN 325 MG TAB PO PRN; -ASPIRIN 81 MG CHEW ONE; -FENTANYL CITRATE INJ 50 MCG/1 ML 2 ML VIAL ONE; -HEPARIN SOD (PORCINE) 1000 UNIT/ML 10 ML VIAL ONE; -MIDAZOLAM HCL 1 MG/ML 2ML VIAL ONE; -NITROGLYCERIN/D5W 100MCG/ML 20ML SYR ONE; -NiCARDipine HCL INJ 2.5 MG/ML 10 ML AMP ONE; -ONDANSETRON INJ 2 MG/ML 2 ML VIAL IV PRN; -SODIUM CHLORIDE 0.9% 1000ML 1,000 ML IV SCH; -SODIUM CHLORIDE 0.9% 1000ML 250 ML IV PRN
[2017-08-10 10:46] LABS: BLOOD UREA NITROGEN 14 mg/dl (7-18); BUN/CREATININE RATIO 11.6 (10-20); CALCIUM 9.5 mg/dl (8.5-10.1); CARBON DIOXIDE 30 mmol/L (21-32); CHLORIDE 105 mmol/L (98-107); CREATININE 1.25 mg/dl (0.60-1.20); GLUCOSE 107 mg/dl (70-99); SODIUM 142 mmol/L (136-145)
== END | disposition home or self-care (01) ==
LOC: C.LAB1850 09:31
PROVIDERS: ATTEND Internal Medicine Cardiovascular Disease
DX: I48.91 Unspecified atrial fibrillation (principal); R06.09 Other forms of dyspnea; I42.9 Cardiomyopathy, unspecified; I50.42 Chronic combined systolic (congestive) and diastolic (congestive) heart failure; I11.0 Hypertensive heart disease with heart failure

== ENCOUNTER → 2017-12-07 | Outpatient (CLI) | payer OTHER, MEDICARE ==
[2017-12-07 17:45] LABS: HEMOGLOBIN 15.8 g/dL (12.0-16.0); MEAN CELL VOLUME 90.4 fL (80-100); MEAN CORPUSCULAR HEMOGLOBIN 30.4 pg (25-34); MEAN CORPUSCULAR HGB CONC 33.6 g/dl (32-36); MEAN PLATELET VOLUME 10.6 fL (7.4-10.4); PLATELET COUNT 216 K/uL (130-400); RED CELL DISTRIBUTION WIDTH CV 15.3 % (11.5-14.5); RED CELL DISTRIBUTION WIDTH SD 50.6 fL (36.4-46.3)
[2017-12-07 18:00] LABS: BLOOD UREA NITROGEN 25 mg/dl (7-18); CALCIUM 9.7 mg/dl (8.5-10.1); CARBON DIOXIDE 30 mmol/L (21-32); CREATININE 1.49 mg/dl (0.60-1.20); GLUCOSE 103 mg/dl (70-99); POTASSIUM 3.7 mmol/L (3.5-5.1); SODIUM 139 mmol/L (136-145)
== END | disposition home or self-care (01) ==
LOC: C.LABBFT 13:58
PROVIDERS: ATTEND Internal Medicine Cardiovascular Disease
DX: I10 Essential (primary) hypertension (principal); I50.32 Chronic diastolic (congestive) heart failure; I48.91 Unspecified atrial fibrillation; Z79.01 Long term (current) use of anticoagulants; R06.09 Other forms of dyspnea

== ENCOUNTER → 2017-12-12 | Outpatient (CLI) | payer OTHER, MEDICARE ==
[2017-12-12 15:00] LABS: BLOOD UREA NITROGEN 22 mg/dl (7-18); CALCIUM 9.2 mg/dl (8.5-10.1); CARBON DIOXIDE 26 mmol/L (21-32); CREATININE 1.55 mg/dl (0.60-1.20); GLUCOSE 106 mg/dl (70-99); SODIUM 138 mmol/L (136-145)
[2017-12-13 06:52] LABS: HEMOGLOBIN A1C 6.9 % (4.5-5.6)
== END | disposition home or self-care (01) ==
LOC: C.LABSPEC 14:30
PROVIDERS: ATTEND Internal Medicine
DX: R73.9 Hyperglycemia, unspecified (principal); I10 Essential (primary) hypertension

== ENCOUNTER 2017-12-26 15:22 | Inpatient (IN) | payer OTHER, MEDICARE ==
[~2017-12-26] VITALS: Ht 165.1 cm; Wt 100.4 kg
[2017-12-26] MEDS ORDERED: LEVO100T7 PO (15:46)
[2017-12-26] MEDS ORDERED: TPRSR/100 PO (15:47)
[2017-12-26] MEDS ORDERED: LSN20 PO (15:47)
[2017-12-26] MEDS ORDERED: LSX20 PO (15:48)
--- NOTE | 2017-12-26 16:17 | DIAGNOSTIC IMAGING REPORT ---
CHEST ONE VIEW PORTABLE HISTORY: Atypical CHEST PAIN COMPARISON: Chest 05/31/2017. FINDINGS: The heart remains enlarged. No focal lung consolidations to suggest pneumonia. No evidence for pulmonary edema. No pleural effusions. No pneumothorax. IMPRESSION: Stable cardiomegaly. Electronically signed by: Carmine Michel M.D. 12/26/2017 4:16 PM Dictated Date/Time: 12/26/2017 4:14 PM
[2017-12-26 16:33] LABS: BASO % 0.6 %; BASO ABS # 0.03 K/uL (0-0.2); EOS % 2.1 %; HEMATOCRIT 45.1 % (37-47); HEMOGLOBIN 15.1 g/dL (12.0-16.0); IG# 0.01 K/uL (0.00-0.02); LYMPH % 14.9 %; LYMPH ABS # 0.71 K/uL (1.2-3.4); MEAN CELL VOLUME 90.4 fL (80-100); MEAN CORPUSCULAR HEMOGLOBIN 30.3 pg (25-34); MEAN CORPUSCULAR HGB CONC 33.5 g/dl (32-36); MEAN PLATELET VOLUME 9.6 fL (7.4-10.4); MONO % 17.7 %; MONO ABS # 0.84 K/uL (0.11-0.59); NEUT % 64.5 %; NEUT ABS # 3.06 K/uL (1.4-6.5); PLATELET COUNT 180 K/uL (130-400); RED CELL DISTRIBUTION WIDTH CV 15.8 % (11.5-14.5); RED CELL DISTRIBUTION WIDTH SD 51.9 fL (36.4-46.3); WHITE BLOOD COUNT 4.75 K/uL (4.8-10.8)
[2017-12-26 16:44] LABS: INR 1.6 (0.9-1.1); PTT PATIENT 31.5 SECONDS (21.0-31.0)
[2017-12-26 16:53] LABS: ALBUMIN 3.1 gm/dl (3.4-5.0); CALCIUM 9.3 mg/dl (8.5-10.1); CREATININE 1.36 mg/dl (0.60-1.20); POTASSIUM 3.9 mmol/L (3.5-5.1)
--- NOTE | 2017-12-26 16:54 | EMERGENCY ROOM VISIT NOTE ---
History Report prepared by Jair: Marv Astudillo Under the Supervision of: Dr. Ender Rodriguez M.D. First contact with patient: 15:42 Chief Complaint: COUGH Stated Complaint: COUGH, SICK TO STOMACH, DIARHEA History of Present Illness The patient is an 82 year old female who presents to the Emergency Room with complaints of worsening shortness of breath and a cough that began a few days ago. The patient's son states that they have been on a cruise ship for the past 7 days. While on this cruise the patient developed a cough and became unusually short of breath. While on the cruise the patient also noticed some worsening swelling in her lower extremities. There has been no chest pain. The patient is on an oral Lasix commonly, and doubled up on this dosage Las Tuesday 4 days ago as well as today. Today it looks as thought the swelling in her legs has improved. The patient also note that her bowel movement today was liquid diarrhea, and she also vomited. She is on Eliquis secondary to ah history of atrial fibrillation. The patient had a echocardiogram recently which showed "fluid around her heart" per the son. Source of History: patient, family Onset: A few days ago Timing: worsening Associated Symptoms: + SOB, + vomiting, + diarrhea, No chest pain Note: Lower Extremity swelling Review of Systems See HPI for pertinent positives & negatives. A total of 10 systems reviewed and were otherwise negative. Past Medical & Surgical Medical Problems: (1) Atrial fibrillation (2) HTN (hypertension) Surgical Problems: (1) Hx of cholecystectomy Old medical records were reviewed. Nurse's notes were reviewed and I agree with. Family History FH: HTN (hypertension) FH: gallbladder disease FH: heart disease Social History Smoking Status: Former Smoker Marital Status: Housing Status: lives alone Occupation Status: retired Current/Historical Medications Scheduled Acetaminophen (Tylenol), 500 MG PO BID Apixaban (Eliquis), 5 MG PO BID Fluoxetine (Prozac), 20 MG PO DAILY Levothyroxine Sodium (Levothyroxine Sodium), 100 MCG PO DAILY Lisinopril (Lisinopril), 20 MG PO DAILY Metoprolol Succinate (Metoprolol Succinate ER), 100 MG PO DAILY Multivitamin (Multivitamin), 1 TAB PO DAILY Potassium Chloride (Micro-K Ext Rel), 10 MEQ PO DAILY Torsemide (Demadex), 20 MG PO DAILY Scheduled PRN Lorazepam (Ativan), 0.5 MG PO DAILY PRN for PRN Allergies Coded Allergies: Latex1 -Allergic Contact Dermititis (Verified Allergy, Intermediate, RASH , HIVES, 12/26/17) Meperidine (Verified Allergy, Unknown, ITCH, 12/26/17) Morphine (Verified Allergy, Unknown, 0, 12/26/17) CONFUSION Oxycodone (Verified Allergy, Unknown, 0, 12/26/17) CONFUSION Codeine (Verified Adverse Reaction, Mild, NAUSEA, 12/26/17) CONFUSION Physical Exam Vital Signs Date Time Temp Pulse Resp B/P (MAP) Pulse Ox O2 Delivery O2 Flow Rate FiO2 12/26/17 17:32 79 18 147/90 98 Room Air 12/26/17 16:41 91 12/26/17 15:45 99 Nasal Cannula 2.0 12/26/17 15:45 99 Nasal Cannula 2.0 12/26/17 15:43 99 Nasal Cannula 2.0 12/26/17 15:42 85 Room Air 12/26/17 15:27 36.9 94 24 132/61 95 Room Air Physical Exam General: Mildly tachypneic appearing older female in no acute distress. HEENT: Normal cephalic atraumatic. Pupils are equal round and reactive to light. Extraocular movements are intact. Oropharynx is pink with moist mucous membranes. No swelling of the mouth lips or tongue. Neck: Supple with a midline trachea. No meningeal signs or stiffness, no JVD or bruits. No Stridor. Chest: Clear to auscultation bilaterally. No wheezes or rhonchi. No increased work of breathing. Heart: regular rate and rhythm. Abdomen: Soft nontender, nondistended without rebound guarding or rigidity. Extremities: No cyanosis clubbing. 1+ pedal edema bilaterally. No calf tenderness or assymetry Spine/Back. Non tender to palpation. No CVA tenderness Skin: Good turgor without rashes. Neurologic exam: Cranial nerves two through 12 are intact. Motor and sensation are intact and symmetrical throughout. Medical Decision & Procedures ER Provider Diagnostic Interpretation: Radiology results as stated below per my review and radiologist interpretation: CHEST ONE VIEW PORTABLE HISTORY: Atypical CHEST PAIN COMPARISON: Chest 05/31/2017. FINDINGS: The heart remains enlarged. No focal lung consolidations to suggest pneumonia. No evidence for pulmonary edema. No pleural effusions. No pneumothorax. IMPRESSION: Stable cardiomegaly. Electronically signed by: Carmine Michel M.D. 12/26/2017 4:16 PM Dictated Date/Time: 12/26/2017 4:14 PM Laboratory Results 12/26/17 16:20 Red Blood Count 4.99, Mean Corpuscular Volume 90.4, Mean Corpuscular Hemoglobin 30.3, Mean Corpuscular Hemoglobin Concent 33.5, Mean Platelet Volume 9.6, Neutrophils (%) (Auto) 64.5, Lymphocytes (%) (Auto) 14.9, Monocytes (%) (Auto) 17.7, Eosinophils (%) (Auto) 2.1, Basophils (%) (Auto) 0.6, Neutrophils # (Auto ) 3.06, Lymphocytes # (Auto) 0.71, Monocytes # (Auto) 0.84, Eosinophils # (Auto ) 0.10, Basophils # (Auto) 0.03 12/26/17 16:20 Test 12/26/17 16:20 12/26/17 16:22 White Blood Count 4.75 K/uL (4.8-10.8) Red Blood Count 4.99 M/uL (4.2-5.4) Hemoglobin 15.1 g/dL (12.0-16.0) Hematocrit 45.1 % (37-47) Mean Corpuscular Volume 90.4 fL (80-100) Mean Corpuscular Hemoglobin 30.3 pg (25-34) Mean Corpuscular Hemoglobin Concent 33.5 g/dl (32-36) Platelet Count 180 K/uL (130-400) Mean Platelet Volume 9.6 fL (7.4-10.4) Neutrophils (%) (Auto) 64.5 % Lymphocytes (%) (Auto) 14.9 % Monocytes (%) (Auto) 17.7 % Eosinophils (%) (Auto) 2.1 % Basophils (%) (Auto) 0.6 % Neutrophils # (Auto) 3.06 K/uL (1.4-6.5) Lymphocytes # (Auto) 0.71 K/uL (1.2-3.4) Monocytes # (Auto) 0.84 K/uL (0.11-0.59) Eosinophils # (Auto) 0.10 K/uL (0-0.5) Basophils # (Auto) 0.03 K/uL (0-0.2) RDW Standard Deviation 51.9 fL (36.4-46.3) RDW Coefficient of Variation 15.8 % (11.5-14.5) Immature Granulocyte % (Auto) 0.2 % Immature Granulocyte # (Auto) 0.01 K/uL (0.00-0.02) Prothrombin Time 16.4 SECONDS (9.0-12.0) Prothromb Time International Ratio 1.6 (0.9-1.1) Activated Partial Thromboplast Time 31.5 SECONDS (21.0-31.0) Partial Thromboplastin Ratio 1.2 D-Dimer 420 ug/L FEU (0-500) Anion Gap 9.0 mmol/L (3-11) Est Creatinine Clear Calc Drug Dose 39.7 ml/min Estimated GFR () 42.5 Estimated GFR (Non- 36.7 BUN/Creatinine Ratio 12.6 (10-20) Calcium Level 9.3 mg/dl (8.5-10.1) Total Bilirubin 1.5 mg/dl (0.2-1) Direct Bilirubin 0.6 mg/dl (0-0.2) Aspartate Amino Transf (AST/SGOT) 40 U/L (15-37) Alanine Aminotransferase (ALT/SGPT) 30 U/L (12-78) Alkaline Phosphatase 178 U/L (45-117) Total Creatine Kinase 117 U/L (26-192) Creatine Kinase MB 1.6 ng/ml (0.5-3.6) Creatine Kinase MB Ratio 1.4 (0-3.0) Pro-B-Type Natriuretic Peptide 2224 pg/ml (0-1800) Total Protein 7.1 gm/dl (6.4-8.2) Albumin 3.1 gm/dl (3.4-5.0) Lipase 144 U/L (73-393) Influenza Type A Antigen Neg for Influ A (NEG) Influenza Type B Antigen Neg for Influ B (NEG) Bedside Troponin I 0.060 ng/ml (0-0.045) Laboratory studies as stated above per my review. ECG Per My Interpretation Indication: SOB/dyspnea Rate (beats per minute): 81 Rhythm: atrial fibrillation Findings: other (LAD, poor baseline, poor R-wave progression, No JOSE ANGEL/STD) Comparison ECG Date: 08/24/2015 Change: no significant change ED Course 1542: Past medical records reviewed. The patient was evaluated in room B2, and a complete history and physical examination were performed. 1608: I discussed the case with Cardiopulmonary - They will come to the department to do an Echocardiogram. 1611: I discussed the case with Dr. Camara - Cardiology. He will evaluate the patient's echo. 1651: I discussed the case with Dr. Camara - Cardiology. He states there is no effusion on the echocardiogram. 1725: I discussed the case with Dr. Vergara - Internal Medicine. He agrees that the patient should stay for observation. 1824: I discussed the case with Dr. Lesvia Fisher - [facility] Hospitalist. He will evaluate the patient for further treatment. Medical Decision Differential diagnosis includes; congestive heart failure, pericardial effusion , pulmonary embolism, pneumonia, pneumothorax, anemia, electrolyte or metabolic abnormality. This patient comes in as described above. She has had shortness of breath and was noted to be significantly hypoxemic with walking. She was okay at rest but this is definitely exertional. She just came back from a cruise. She has had a small pericardial effusion was rechecked by an echo on 15 December prior to going. during the cruise, she pretty much laid around and was tired the whole time and short of breath. She has had no chest pain. She has had a cough. she has also had some nausea, vomiting, and diarrhea. IV access established, blood work was obtained. EKG shows A. fib which is chronic for her and there is no definite ischemic changes were any rate control issues. Chest x-ray was clear and does not show congestive heart failure, pneumonia, or pneumothorax. D- dimer is within normal limits which makes PE highly unlikely. I did an echo in the emergency department which does not show a pericardial effusion, she does have LVH please refer to the report. Her BNP was also elevated and she does have peripheral edema definitely has a CHF component although she may be more intravascularly dry with the nausea, vomiting, diarrhea. She has nothing to suggest sepsis. Influenza swab was negative. I do think she needs to be admitted for further treatment and evaluation of her hypoxemia. I have consulted the [facility] hospitalist, Dr. Bedolla, to see her in the emergency department. Medication Reconcilliation Current Medication List: was personally reviewed by me Blood Pressure Screening Patient's blood pressure: Elevated blood pressure Referred to PCP. Consults Time Called: 1819 Consulting Physician: Dr. Lesvia RASHID Hospitalist Returned Call: 1823 I discussed the case with Dr. Lesvia RASHID Hospitalist. He will evaluate the patient for further treatment. Impression Primary Impression: Hypoxemia Additional Impression: SOB (shortness of breath) Scribe Attestation The scribe's documentation has been prepared under my direction and personally reviewed by me in its entirety. I confirm that the note above accurately reflects all work, treatment, procedures, and medical decision making performed by me. Departure Information Dispostion Being Evaluated By Hospitalist Referrals Phillip Kim M.D. (PCP) Patient Instructions [facility] Health Problem Qualifiers
[2017-12-26 16:56] LABS: INFLUENZA B ANTIGEN Neg for Influ B (NEG)
[2017-12-26 16:58] LABS: CKMB 1.6 ng/ml (0.5-3.6); TOTAL PROTEIN 7.1 gm/dl (6.4-8.2)
--- NOTE | 2017-12-26 18:25 | ECHOCARDIOGRAM REPORT ---
*NOTICE TO RECEIVING CONSTITUTION PARTY AGENCY This information is strictly Confidential and protected under [place] law. [place] law prohibits you from making any further disclosure of this information unless further disclosure is expressly permitted by the written consent of the person to whom it pertains or is authorized by law. A general authorization for the release of medical or other information is not sufficient for this purpose. Hospital accepts no responsibility if the information is made available to any other person, INCLUDING THE PATIENT. Interpretation Summary * Conclusions -- * 1. Small LV cavity. Severe concentric LVH. * 2. Normal LV systolic function. LVEF 55-60 %. No regional wall motion abnormalities. * 3. Normal RV size and function. * 4. Moderate to severe TR. Mild pulmonary hypertension. Estimated PASP 46 mmHg. * 5. Trivial pericardial effusion * 6. Aortic valve sclerosis without stenosis * 7. Compared with prior study on 03/30/2013: LVH now severe, tricuspid regurgitation moderate to severe Procedure Details * A complete two-dimensional transthoracic echocardiogram was performed (2D, M-mode, Doppler and color flow Doppler). Left Ventricle * The left ventricular cavity is small. * There is severe concentric left ventricular hypertrophy. * Ejection Fraction = 55-60%. * No regional wall motion abnormalities noted. Right Ventricle * The right ventricle is grossly normal size. * There is a pacemaker lead in the right ventricle. * The right ventricular systolic function is normal as assessed by tricuspid annular plane systolic excursion (TAPSE) (normal >1.5 cm). Atria * The left atrium is moderately dilated. * The right atrium is moderately dilated. Mitral Valve * The mitral valve is grossly normal. * There is no mitral valve stenosis. * There is trace mitral regurgitation. Tricuspid Valve * There is moderate to severe tricuspid regurgitation. * Right ventricular systolic pressure is elevated at 40-50mmHg. Aortic Valve * The aortic valve opens well. * The aortic valve is trileaflet. * Aortic valve sclerosis mild, without significant aortic valvular stenosis. * No hemodynamically significant valvular aortic stenosis. * There is no significant aortic regurgitation. Pulmonic Valve * The pulmonary valve is inadequately visualized, but the Doppler data is adequate for interpretation. * Pulmonic stenosis is absent. * Trace pulmonic valvular regurgitation. Great Vessels * The aortic root and proximal ascending aorta are normal sized. Pericardium/Pleural * Trivial pericardial effusion Great Vessels * Dilated inferior vena cava with reduced collapsability with sniff indicates an elevated right atrial pressure of 15 mmHg MMode 2D Measurements and Calculations IVSd 2.3 cm IVSs 2.6 cm LVIDd 3.6 cm LVIDs 2.7 cm LVPWd 1.9 cm LVPWs 2.2 cm IVS/LVPW 1.2 FS 24.5 % EDV(Teich) 54.8 ml ESV(Teich) 27.7 ml EF(Teich) 49.5 % EDV(cubed) 47.0 ml ESV(cubed) 20.3 ml EF(cubed) 56.9 % % IVS thick 16.3 % % LVPW thick 17.7 % LV mass(C)d 349.7 grams LV mass(C)dI 166.3 grams/m\S\2 LV mass(C)s 345.2 grams LV mass(C)sI 164.2 grams/m\S\2 SV(Teich) 27.1 ml SI(Teich) 12.9 ml/m\S\2 SV(cubed) 26.8 ml SI(cubed) 12.7 ml/m\S\2 Ao root diam 2.7 cm Ao root area 5.6 cm\S\2 LA dimension 5.4 cm LA/Ao 2.0 LVOT diam 1.9 cm LVOT area 2.8 cm\S\2 Doppler Measurements and Calculations MV E max aimee 77.6 cm/sec MV P1/2t max aimee 91.8 cm/sec MV P1/2t 58.5 msec MVA(P1/2t) 3.8 cm\S\2 MV dec slope 460.1 cm/sec\S\2 MV dec time 0.14 sec Ao V2 max 97.7 cm/sec Ao max PG 3.8 mmHg Ao max PG (full) 2.0 mmHg ANA(V,A) 1.9 cm\S\2 ANA(V,D) 1.9 cm\S\2 LV V1 max PG 1.8 mmHg LV V1 max 66.7 cm/sec PA V2 max 69.0 cm/sec PA max PG 1.9 mmHg PI max aimee 193.3 cm/sec PI max PG 14.9 mmHg PI dec slope 197.8 cm/sec\S\2 PI P1/2t 286.2 msec TR max aimee 241.7 cm/sec
[2017-12-26] MEDS ORDERED: LORAZEPAM 0.5 MG TAB PO PRN (20:00)
[2017-12-26] MEDS ORDERED: MAGNESIUM HYDROXIDE SUSP 30 ML UDC PO PRN (20:15)
[2017-12-26] MEDS ORDERED: ALUMINUM/MAGNESIUM/SIMETH (MAALOX MAX) 30 ML UDC PO PRN (20:15)
[2017-12-26] MEDS ORDERED: ONDANSETRON INJ 2 MG/ML 2 ML VIAL IV PRN (20:15)
[2017-12-26] MEDS ORDERED: POLYETHYLENE (MIRALAX) 17 GM PACK PO PRN (20:15)
--- NOTE | 2017-12-26 20:24 | History and Physical ---
History & Physical Date & Time of Service: Dec 26, 2017 at 20:05 Chief Complaint: Cough, Sick To Stomach, Diarrhea Primary Care Physician: Phillip Kim M.D. History of Present Illness Source: patient, family 82 y/o F Hx AF, HTN, HPL, hypothyroidism, CKD III, severe tricuspid regurge, chronic diastolic dysfunction. Presents with progressive exertional dyspnea, dry cough, nausea and diarrhea. She was on a cruise this past week but states her SOB began before then. She denies CP, fevers, N/V or diaphoresis. She states she has had increased ankle edema for a few weeks. Initial labs reveal a mild trop elevation. CXR was WNL. An echo was obtained in the ER revealing LVH, elevated atrial pressures, severe tricuspid regurge, normal systolic function. The pt exhibited hypoxia with ambulation in the ER. She is maintaining an adequate sat at rest. Past Medical/Surgical History 1) HTN 2) HPL 3) Chronic diastolic dysfunction 4) Chronic AF 5) Hypothyroidism 6) Severe tricuspid regurge 7) Anxiety/depression 8) Cardiac cath 08/02 - normal coronaries Surgical: 1) C sxn x 2 2) BL cataract surgery 3) BL carpal tunnel release 4) Cholecystectomy Family History FH: HTN (hypertension) FH: gallbladder disease FH: heart disease M age 70 - [place] F age 81 - [place] S age 63 - [place] Social History Quit smoking 1976 - does not drink Smoking Status: Former Smoker Marital Status: Occupational Status: retired Immunizations History of Influenza Vaccine: Yes Influenza Vaccine Date: Aug 26, 2007 History of Tetanus Vaccine?: Yes Tetanus Immunization Date: Apr 26, 1999 History of Pneumococcal: No History of Hepatitis B Vaccine: No Allergies Coded Allergies: Latex1 -Allergic Contact Dermititis (Verified Allergy, Intermediate, RASH , HIVES, 12/26/17) Meperidine (Verified Allergy, Unknown, ITCH, 12/26/17) Morphine (Verified Allergy, Unknown, 0, 12/26/17) CONFUSION Oxycodone (Verified Allergy, Unknown, 0, 12/26/17) CONFUSION Codeine (Verified Adverse Reaction, Mild, NAUSEA, 12/26/17) CONFUSION Home Medications Scheduled Acetaminophen (Tylenol), 500 MG PO BID Apixaban (Eliquis), 5 MG PO BID Fluoxetine (Prozac), 20 MG PO DAILY Levothyroxine Sodium (Levothyroxine Sodium), 100 MCG PO DAILY Lisinopril (Lisinopril), 20 MG PO DAILY Metoprolol Succinate (Metoprolol Succinate ER), 100 MG PO DAILY Multivitamin (Multivitamin), 1 TAB PO DAILY Potassium Chloride (Micro-K Ext Rel), 10 MEQ PO DAILY Torsemide (Demadex), 20 MG PO DAILY Scheduled PRN Lorazepam (Ativan), 0.5 MG PO DAILY PRN for PRN Review of Systems Constitutional: No fever, No chills, No sweats Eyes: No worsening of vision ENT: No hearing loss, No unusual epistaxis Respiratory: + shortness of breath, + dyspnea on exertion, + dyspnea at rest, No cough, No sputum, No wheezing Cardiovascular: + PND, No chest pain Abdomen: No pain, No vomiting Musculoskeletal: No joint pain Genitourinary - Female: No dysuria, No urinary frequency, No urinary urgency Neurologic: No memory loss, No weakness Endocrine: No fatigue Hematologic / Lymphatic: No abnormal bleeding/bruising Integumentary: No rash Allergic / Immunologic: No environmental allergies Physical Exam Vital Signs Date Time Temp Pulse Resp B/P (MAP) Pulse Ox O2 Delivery O2 Flow Rate FiO2 12/26/17 17:32 79 18 147/90 98 Room Air 12/26/17 16:41 91 12/26/17 15:45 99 Nasal Cannula 2.0 12/26/17 15:45 99 Nasal Cannula 2.0 12/26/17 15:43 99 Nasal Cannula 2.0 12/26/17 15:42 85 Room Air 12/26/17 15:27 36.9 94 24 132/61 95 Room Air General Appearance: WD/WN, no apparent distress Head: normocephalic Eyes: normal inspection, EOMI ENT: normal ENT inspection, pharynx normal Neck: + JVD Respiratory/Chest: chest non-tender, + pertinent finding (Crackles at the R base - end expiratory wheezing BL upper lobes) Abdomen/GI: normal bowel sounds, non tender, soft Back: normal inspection, no CVA tenderness Neurologic/Psych: patient care manager II-XII nml as tested, no motor/sensory deficits, oriented x 3 Skin: normal color Diagnostics Laboratory Results Results Past 24 Hours Test 12/26/17 15:50 12/26/17 16:20 12/26/17 16:22 Range/Units Creatine Kinase MB Ratio 1.4 0-3.0 White Blood Count 4.75 4.8-10.8 K/uL Red Blood Count 4.99 4.2-5.4 M/uL Hemoglobin 15.1 12.0-16.0 g/dL Hematocrit 45.1 37-47 % Mean Corpuscular Volume 90.4 80-100 fL Mean Corpuscular Hemoglobin 30.3 25-34 pg Mean Corpuscular Hemoglobin Concent 33.5 32-36 g/dl Platelet Count 180 130-400 K/uL Mean Platelet Volume 9.6 7.4-10.4 fL Neutrophils (%) (Auto) 64.5 % Lymphocytes (%) (Auto) 14.9 % Monocytes (%) (Auto) 17.7 % Eosinophils (%) (Auto) 2.1 % Basophils (%) (Auto) 0.6 % Neutrophils # (Auto) 3.06 1.4-6.5 K/uL Lymphocytes # (Auto) 0.71 1.2-3.4 K/uL Monocytes # (Auto) 0.84 0.11-0.59 K/uL Eosinophils # (Auto) 0.10 0-0.5 K/uL Basophils # (Auto) 0.03 0-0.2 K/uL RDW Standard Deviation 51.9 36.4-46.3 fL RDW Coefficient of Variation 15.8 11.5-14.5 % Immature Granulocyte % (Auto) 0.2 % Immature Granulocyte # (Auto) 0.01 0.00-0.02 K/uL Prothrombin Time 16.4 9.0-12.0 SECONDS Prothromb Time International Ratio 1.6 0.9-1.1 Activated Partial Thromboplast Time 31.5 21.0-31.0 SECONDS Partial Thromboplastin Ratio 1.2 D-Dimer 420 0-500 ug/L FEU Sodium Level 137 136-145 mmol/L Potassium Level 3.9 3.5-5.1 mmol/L Chloride Level 99 98-107 mmol/L Carbon Dioxide Level 28 21-32 mmol/L Anion Gap 9.0 3-11 mmol/L Blood Urea Nitrogen 17 7-18 mg/dl Creatinine 1.36 0.60-1.20 mg/dl Est Creatinine Clear Calc Drug Dose 39.7 ml/min Estimated GFR () 42.5 Estimated GFR (Non- 36.7 BUN/Creatinine Ratio 12.6 10-20 Random Glucose 117 70-99 mg/dl Calcium Level 9.3 8.5-10.1 mg/dl Total Bilirubin 1.5 0.2-1 mg/dl Direct Bilirubin 0.6 0-0.2 mg/dl Aspartate Amino Transf (AST/SGOT) 40 15-37 U/L Alanine Aminotransferase (ALT/SGPT) 30 12-78 U/L Alkaline Phosphatase 178 45-117 U/L Total Creatine Kinase 117 26-192 U/L Creatine Kinase MB 1.6 0.5-3.6 ng/ml Pro-B-Type Natriuretic Peptide 2224 0-1800 pg/ml Total Protein 7.1 6.4-8.2 gm/dl Albumin 3.1 3.4-5.0 gm/dl Lipase 144 73-393 U/L Influenza Type A Antigen Neg for Influ A NEG Influenza Type B Antigen Neg for Influ B NEG Bedside Troponin I 0.060 0-0.045 ng/ml Diagnostic Radiology CXR: The heart remains enlarged. No focal lung consolidations to suggest pneumonia. No evidence for pulmonary edema. No pleural effusions. No pneumothorax. EKG AF, ant and lat Q wvs, L axis - no significant morphological change from 2015 Impression Assessment and Plan 82 y/o F Hx AF, HTN, HPL, hypothyroidism, CKD III, severe tricuspid regurge, chronic diastolic dysfunction. Presents with progressive exertional dyspnea, dry cough, nausea and diarrhea. She was on a cruise this past week but states her SOB began before then. She denies CP, fevers, N/V or diaphoresis. She states she has had increased ankle edema for a few weeks. Initial labs reveal a mild trop elevation. CXR was WNL. An echo was obtained in the ER revealing LVH, elevated atrial pressures, severe tricuspid regurge, normal systolic function. The pt exhibited hypoxia with ambulation in the ER. She is maintaining an adequate sat at rest. 1) SOB/CHF - considering an elevated trop and her clinical exam, this is likely due to a degree of volume overload. She took an extra Torsemide this Am as she felt she was overloaded. We will give her a low dose of Lasix and monitor Is/Os , daily weights. We will continue her B fernanda. 2) Diarrhea - possibly viral as she developed this on a cruise - she does not have leukocytosis or fever presently or identifiable C diff risk - we will treat supportively for now 3) Marginal trop elevation - likely due to CHF - there were no wall motion abnormalities on echo - normal cath reported in 2017 4) AF - rate controlled - cont Eliquis, B fernanda 5) CKD III - creat improved from baseline 6) Hypothyroidism - cont Synthroid Full code - Eliquis anticoagulation Total time for this admit including review of labs, meds, imaging, records - discussion with pt and ER attending - 37 min Resuscitation Status VTE Prophylaxis Will order VTE Prophylaxis: Yes
[2017-12-26] MEDS ORDERED: IV FLUIDS COMPLETED PRN (21:00)
[2017-12-26] MEDS ORDERED: POTASSIUM CHLORIDE PWD 20 MEQ PACK PO ONE (21:30)
[2017-12-26] MEDS ORDERED: FUROSEMIDE INJ 20 MG in SYRINGE 0 ML IV ONE (21:30)
[2017-12-26 21:34] VITALS: BP 129/80; PULSE 81; TEMP 36.8; O2SAT 94; Ht 165.1 cm; Wt 100.4 kg
[2017-12-26] MEDS: APIXABAN 2.5 MG TAB PO SCH ×2 (21:48→21:56)
[2017-12-26] MEDS: ACETAMINOPHEN 325 MG TAB PO PRN (21:52)
[2017-12-27] VITALS (8 sets, daily range): BP systolic 126–158; BP diastolic 74–89; PULSE 70–83; TEMP 36.7–37.5; O2SAT 92–98
[2017-12-27] MEDS: LEVOTHYROXINE 100 MCG TAB PO SCH (06:06)
[2017-12-27 06:34] LABS: CALCIUM 8.6 mg/dl (8.5-10.1); CREATININE 1.22 mg/dl (0.60-1.20); POTASSIUM 3.6 mmol/L (3.5-5.1)
--- NOTE | 2017-12-27 07:19 | Family Medicine Progress Note ---
Progress Note Date of Service Dec 27, 2017. Subjective Spoke with pt this morning with sister at bedside. Main complaint is generally not feeling well over the past few days, was on a cruise with family and at the end came down with gastrointestinal upset -- no one else in family seems to have come down with this. [place] some chills, had diarrhea and vomiting and dry heaving yesterday. This morning is able to eat breakfast. Denies any recent use of antibiotics to suggest c diff. Denies any chest pain, although her breathing has been an issue for her over the past few months. Has a dry cough. Says that her PCP has done tests on her for her lung function that have been normal. Says that she was prescribed scheduled nebulizer treatments and a Dulera inhaler that she used up until about a month ago, when it ran out. Says her breathing was better while on this treatment. Denies PND or orthopnea, sleeps flat on her side at night normally. Leg swelling appears stable for her. Spoke again in the afternoon, pt still audibly wheezing, dry cough still present. ROS See HPI for pertinent positives and negatives. Medications Current Inpatient Medications Medications (Trade) Dose Ordered Sig/Amadeo Route Start Time Stop Time Status Last Admin Dose Admin Fluoxetine HCl (Prozac Cap) 20 mg DAILY PO 12/27/17 09:00 01/26/18 08:59 12/27/17 08:38 20 MG Levothyroxine Sodium (Synthroid Tab) 100 mcg DAILYBB PO 12/27/17 06:30 01/26/18 06:59 12/27/17 06:06 100 MCG Lisinopril (Zestril Tab) 20 mg DAILY PO 12/27/17 09:00 01/26/18 08:59 12/27/17 08:40 20 MG Lorazepam (Ativan Tab) 0.5 mg DAILY PRN PO 12/26/17 20:00 01/25/18 19:59 Potassium Chloride (Klor-Con M10) 10 meq DAILY PO 12/27/17 09:00 01/26/18 08:59 12/27/17 08:37 10 MEQ Torsemide (Demadex Tab) 20 mg DAILY PO 12/27/17 09:00 01/26/18 08:59 12/27/17 08:44 20 MG Apixaban (Eliquis Tab) 5 mg BID PO 12/26/17 22:00 01/25/18 21:59 12/27/17 09:12 5 MG Metoprolol Succinate (Toprol Xl Tab) 100 mg DAILY PO 12/27/17 09:00 01/26/18 08:59 12/27/17 08:40 100 MG Acetaminophen (Tylenol Tab) 650 mg Q4H PRN PO 12/26/17 20:15 01/25/18 20:14 12/26/17 21:52 650 MG Al Hydrox/Mg Hydrox/Simethicone (Maalox Max Susp) 15 ml Q4H PRN PO 12/26/17 20:15 01/25/18 20:14 Magnesium Hydroxide (Milk Of Magnesia Susp) 30 ml Q12H PRN PO 12/26/17 20:15 01/25/18 20:14 Ondansetron HCl (Zofran Inj) 4 mg Q6H PRN IV 12/26/17 20:15 01/25/18 20:14 Polyethylene (Miralax Powder Packet) 17 gm DAILY PRN PO 12/26/17 20:15 01/25/18 20:14 Miscellaneous (Iv Fluids Completed) 1 ea PRN PRN N/A 12/26/17 21:00 12/26/18 20:59 Menthol (Nice Blaire) 1 blaire [id number] PRN BLAIRE 12/27/17 12:45 01/26/18 12:44 12/27/17 13:59 1 BLAIRE Objective Vital Signs Date Time Temp Pulse Resp B/P (MAP) Pulse Ox O2 Delivery O2 Flow Rate FiO2 12/27/17 15:57 36.7 76 44 158/89 (112) 96 Nasal Cannula 1.5 12/27/17 14:05 95 Nasal Cannula 1.0 12/27/17 12:00 94 Room Air 12/27/17 11:27 36.7 73 20 158/83 (108) 92 12/27/17 08:00 Nasal Cannula 2.0 12/27/17 07:03 37.0 79 18 126/77 (93) 98 2.0 12/27/17 04:00 Nasal Cannula 2.0 12/27/17 04:00 36.8 70 20 133/74 (93) 97 2.0 3/13/18 00:21 36.9 78 20 126/77 (93) 96 2.0 12/27/17 00:00 Nasal Cannula 2.0 12/26/17 21:34 36.8 81 20 129/80 94 Nasal Cannula 2.0 12/26/17 20:48 12/26/17 20:30 90 19 97 Nasal Cannula 2.0 12/26/17 20:00 85 25 95 Nasal Cannula 2.0 12/26/17 19:30 84 21 98 Nasal Cannula 2.0 12/26/17 19:02 146/86 12/26/17 17:32 79 18 147/90 98 Room Air Physical Exam Notes: GENERAL: Awake, alert, in no distress. Nasal cannula in place, audibly wheezing and unable to speak in full sentence. Not in any distress. HENT: Normocephalic, atraumatic. EYES: Normal conjunctiva. Sclera non-icteric. RESPIRATORY: + end expiratory wheezes bilaterally CARDIAC: Irregularly irregular, 70-80s. Extremities warm and well perfused. Pulses equal. ABDOMEN: Soft, non-distended. No tenderness to palpation. No rebound or guarding. No masses. LOWER EXTREMITIES: Calves are equal size bilaterally and non-tender. 1+ edema. No discoloration. NEURO: No motor deficits noted. SKIN: No rash or jaundice noted. Laboratory Results 12/27/17 05:17 Test 12/27/17 05:17 Anion Gap 8.0 mmol/L (3-11) Est Creatinine Clear Calc Drug Dose 43.6 ml/min Estimated GFR () 48.5 Estimated GFR (Non- 41.8 BUN/Creatinine Ratio 14.1 (10-20) Calcium Level 8.6 mg/dl (8.5-10.1) Magnesium Level 2.0 mg/dl (1.8-2.4) Troponin I 0.082 ng/ml (0-0.045) Assessment and Plan 82F here for CHF exac with dyspnea on exertion PMH: HTN, HPL, Chronic diastolic dysfunction, Chronic AF, Hypothyroidism, Severe tricuspid regurge, Anxiety/depression, Cardiac cath 08/02 - normal coronaries PSH: C sxn x 2, BL cataract surgery, BL carpal tunnel release, Cholecystectomy 12/26 CXR: The heart remains enlarged. No focal lung consolidations to suggest pneumonia. No evidence for pulmonary edema. No pleural effusions. No pneumothorax. 12/26 EKG: AF, ant and lat Q wvs, L axis - no significant morphological change from 12/26 ECHO: - Small LV cavity. Severe concentric LVH. - Normal LV systolic function. LVEF 55-60 %. No regional wall motion abnormalities. - Normal RV size and function. - Moderate to severe TR. Mild pulmonary hypertension. Estimated PASP 46 mmHg. - Trivial pericardial effusion - Aortic valve sclerosis without stenosis - Compared with prior study on 03/30/2013: LVH now severe, tricuspid regurgitation moderate to severe PFT ordered by PCP in Jun was normal. Dyspnea on exertion/CHF exac - troponin mildly elevated, also reports a chronic cough for several months ( neg for flu in ED), is a former smoker, PFT's ordered by PCP normal. Echo done yesterday does show worsening LVH however no wall motion abnormalities. Adding an extra dose of torsemide this afternoon. Will order duonebs since pt says an inhaler has been helpful in the past. Oxygenating well. Diarrhea, prior to admission - resolved -- may paint a viral picture of recent fatigue and dry cough as well. AFIB - Rate controlled. Cont eliquis 5 BID, Toprol 100 daily Hypothyroidism - cont synthroid CKD III - 1.22. creat improved from baseline. HTN - cont Toprol and lisinopril Anxiety - cont fluoxetine, lorazepam 0.5mg tab daily prn DVT ppx: Eliquis 5 BID (home dose) Code: FULL Dispo: Tele Continued [facility] stay due to: other Discharge planning: home Resident Tracking Resident Involvement: Resident Care Provided Care Provided: Adult Hospital Medicine
[2017-12-27] MEDS: POTASSIUM CHLORIDE 10 MEQ TABCR PO SCH (08:37)
[2017-12-27] MEDS: FLUOXETINE HCL 20 MG CAP PO SCH (08:38)
[2017-12-27] MEDS: LISINOPRIL 20 MG TAB PO SCH (08:40)
[2017-12-27] MEDS: METOPROLOL SUCC 50MG EXT REL TAB PO SCH (08:40)
[2017-12-27] MEDS: TORSEMIDE 20 MG TAB PO SCH (08:44)
[2017-12-27] MEDS: APIXABAN 2.5 MG TAB PO SCH ×2 (09:12→21:23)
[2017-12-27] MEDS ORDERED: COUGH DROP (SUGAR FREE) LOZ 24 LOZ/1 BOX LOZ PRN (12:45)
[2017-12-27] MEDS ORDERED: TORSEMIDE 20 MG TAB PO ONE (13:30)
[2017-12-27] MEDS ORDERED: ALBUT/IPRATROP 3MG/0.5MG NEB 3 ML VIAL INH ONE (17:15)
--- NOTE | 2017-12-27 18:23 | DIAGNOSTIC IMAGING REPORT ---
ABDOMINAL ULTRASOUND, RIGHT UPPER QUADRANT HISTORY: elevated liver enzymes. COMPARISON: Abdominal ultrasound 03/07/2015. FINDINGS: Pancreas: The pancreas demonstrates a normal echotexture. Liver: Unremarkable. Gallbladder: The gallbladder is surgically absent. CBD: 8 mm, unchanged. Right kidney: No hydronephrosis. IMPRESSION: 1. Prior cholecystectomy. 2. Normal sonographic appearance of the liver. Electronically signed by: Carmine Michel M.D. 12/27/2017 6:22 PM Dictated Date/Time: 12/27/2017 6:20 PM
[2017-12-27] MEDS: ACETAMINOPHEN 325 MG TAB PO PRN (21:31)
[2017-12-28] VITALS (7 sets, daily range): BP systolic 119–156; BP diastolic 64–89; PULSE 75–89; TEMP 36.6–37; O2SAT 94–97
[2017-12-28] MEDS: LEVOTHYROXINE 100 MCG TAB PO SCH (05:52)
[2017-12-28 07:33] LABS: ALBUMIN 2.6 gm/dl (3.4-5.0); CALCIUM 8.2 mg/dl (8.5-10.1); CREATININE 1.2 mg/dl (0.60-1.20); POTASSIUM 3.2 mmol/L (3.5-5.1); TOTAL PROTEIN 6.2 gm/dl (6.4-8.2)
[2017-12-28] MEDS: METOPROLOL SUCC 50MG EXT REL TAB PO SCH (08:10)
[2017-12-28] MEDS: APIXABAN 2.5 MG TAB PO SCH ×2 (08:10→20:36)
[2017-12-28] MEDS: TORSEMIDE 20 MG TAB PO SCH (08:10)
[2017-12-28] MEDS: POTASSIUM CHLORIDE 10 MEQ TABCR PO SCH (08:10)
[2017-12-28] MEDS: FLUOXETINE HCL 20 MG CAP PO SCH (08:10)
[2017-12-28] MEDS: LISINOPRIL 20 MG TAB PO SCH (08:11)
[2017-12-28] MEDS: ALBUT/IPRATROP 3MG/0.5MG NEB 3 ML VIAL INH PRN (08:29)
[2017-12-28] MEDS ORDERED: POTASSIUM CHLORIDE 20 MEQ TABCR PO STA (08:40)
--- NOTE | 2017-12-28 15:06 | Cardiology Consultation ---
Cardiology Consultation Date of Consultation: Dec 28, 2017. Requesting Physician: De. Liu Reason for Consultation: CHF Pt evaluation today including: conversation w/ patient, physical exam, lab review, review of studies, review of inpatient medication list History of Present Illness This is a very pleasant 82-year-old woman who is followed in our office by Dr. Hathaway with a history of nonischemic cardiomyopathy and paroxysmal atrial fibrillation. She also has a history of hypertension and both systolic and diastolic heart failure. She has had a cardiac catheterization in July 2017 where she had no coronary artery disease, prior to that echocardiography had showed an ejection fraction of 40-45%. More recent echocardiography on December 09, 2017 showed a similar ejection fraction with global hypokinesis, as well as a small pericardial effusion. She has been having difficulty with heart failure recently, she was hospitalized in [place] on October 05, 2017 where that I believe, she then went on a cruise the first week of December, returning home about 3 days ago. She weighed herself before she left and when she got back and she gained 10 pounds. Additionally she noted that her legs were more swollen and she was more short of breath than before leaving. She was having GI difficulty and presented to the emergency room on December 26, 2017. There she was found to have hypoxia on ambulation, mildly elevated troponins and echocardiography in the emergency room showed normal left ventricular systolic function, severe LVH and elevated atrial pressure with severe tricuspid regurgitation. Following admission she has been doing much better, she is much less short of breath although on deep breathing she does have her cough. In general though she feels much better than she did prior to admission and she has had no further GI difficulty. She has had no chest discomfort throughout this. Past Medical/Surgical History (1) Atrial fibrillation (2) HTN (hypertension) (3) Hx of cholecystectomy Family History FH: HTN (hypertension) FH: gallbladder disease FH: heart disease Social History Smoking Status: Former Smoker History of Alcohol Use: No Review of Systems Constitutional: No fever, No weight loss, No weakness Respiratory: + see HPI, + cough, + shortness of breath, No wheezing, No dyspnea on exertion Cardiac: + see HPI, + edema, No chest pain, No palpitations Abdomen: No pain, No nausea, No vomiting, No diarrhea, No GI bleeding Female : No problem reported Neurologic: No paralysis, No weakness, No numbness/tingling, No balance problems Heme: No abnormal bleeding/bruising, No clotting problems Endo: No fatigue Skin: No problem reported All Other Systems: Reviewed and Negative Allergies Coded Allergies: Latex1 -Allergic Contact Dermititis (Verified Allergy, Intermediate, RASH , HIVES, 12/26/17) Meperidine (Verified Allergy, Unknown, ITCH, 12/26/17) Morphine (Verified Allergy, Unknown, 0, 12/26/17) CONFUSION Oxycodone (Verified Allergy, Unknown, 0, 12/26/17) CONFUSION Codeine (Verified Adverse Reaction, Mild, NAUSEA, 12/26/17) CONFUSION Medications Current Inpatient Medications Medications (Trade) Dose Ordered Sig/Amadeo Route Start Time Stop Time Status Last Admin Dose Admin Fluoxetine HCl (Prozac Cap) 20 mg DAILY PO 12/27/17 09:00 01/26/18 08:59 12/28/17 08:10 20 MG Levothyroxine Sodium (Synthroid Tab) 100 mcg DAILYBB PO 12/27/17 06:30 01/26/18 06:59 12/28/17 05:52 100 MCG Lisinopril (Zestril Tab) 20 mg DAILY PO 12/27/17 09:00 01/26/18 08:59 12/28/17 08:11 20 MG Lorazepam (Ativan Tab) 0.5 mg DAILY PRN PO 12/26/17 20:00 01/25/18 19:59 Potassium Chloride (Klor-Con M10) 10 meq DAILY PO 12/27/17 09:00 01/26/18 08:59 12/28/17 08:10 10 MEQ Torsemide (Demadex Tab) 20 mg DAILY PO 12/27/17 09:00 01/26/18 08:59 12/28/17 08:10 20 MG Apixaban (Eliquis Tab) 5 mg BID PO 12/26/17 22:00 01/25/18 21:59 12/28/17 08:10 5 MG Metoprolol Succinate (Toprol Xl Tab) 100 mg DAILY PO 12/27/17 09:00 01/26/18 08:59 12/28/17 08:10 100 MG Acetaminophen (Tylenol Tab) 650 mg Q4H PRN PO 12/26/17 20:15 01/25/18 20:14 12/27/17 21:31 650 MG Al Hydrox/Mg Hydrox/Simethicone (Maalox Max Susp) 15 ml Q4H PRN PO 12/26/17 20:15 01/25/18 20:14 Magnesium Hydroxide (Milk Of Magnesia Susp) 30 ml Q12H PRN PO 12/26/17 20:15 01/25/18 20:14 Ondansetron HCl (Zofran Inj) 4 mg Q6H PRN IV 12/26/17 20:15 01/25/18 20:14 Polyethylene (Miralax Powder Packet) 17 gm DAILY PRN PO 12/26/17 20:15 01/25/18 20:14 Miscellaneous (Iv Fluids Completed) 1 ea PRN PRN N/A 12/26/17 21:00 12/26/18 20:59 Menthol (Nice Blaire) 1 blaire [id number] PRN BLAIRE 12/27/17 12:45 01/26/18 12:44 12/27/17 13:59 1 BLAIRE Albuterol/ Ipratropium (Duoneb) 3 ml Q4R PRN INH 12/27/17 20:00 01/26/18 19:59 12/28/17 08:29 3 ML Physical Exam Vital Signs Past 12 Hours Date Time Temp Pulse Resp B/P (MAP) Pulse Ox O2 Delivery O2 Flow Rate FiO2 12/28/17 12:00 Nasal Cannula 1.0 12/28/17 11:53 37.0 81 18 133/74 (93) 94 Room Air 12/28/17 08:30 75 20 94 Nasal Cannula 1.0 12/28/17 07:45 Nasal Cannula 1.0 12/28/17 07:30 36.8 75 18 129/79 (96) 96 Nasal Cannula 1.0 12/28/17 04:00 Nasal Cannula 1.0 12/28/17 04:00 36.6 77 16 119/74 (89) 95 Room Air 1.0 Constitutional: General Apperance: heathly-appearing Level of Distress: NAD Psychiatric: Mental Status: active & alert Head: normocephalic Eyes: EOM: EOMI ENMT: normal ENT inspection, hearing grossly normal Neck: supple, no masses Lungs: Respiratory effort: no dyspnea, good air movement Auscultation: breath sounds normal, no wheezing Cardiovascular: Heart Auscultation: RRR, no murmurs, no rubs, no gallops Peripheral Pulses: Bruits: none appreciated Abdomen: Bowel Sounds: normal Inspection & Palpation: soft, no tenderness, guarding & rebound, no masses Musculoskeletal: normal strength (5/5 throughout) Extremities: no edema Neurologic: Cranial Nerves: grossly intact Sensation: grossly intact Data Laboratory Results: Last 24 Hours Test 12/28/17 06:12 Sodium Level 137 mmol/L Potassium Level 3.2 mmol/L Chloride Level 100 mmol/L Carbon Dioxide Level 32 mmol/L Anion Gap 6.0 mmol/L Blood Urea Nitrogen 17 mg/dl Creatinine 1.20 mg/dl Est Creatinine Clear Calc Drug Dose 44.1 ml/min Estimated GFR () 49.4 Estimated GFR (Non- 42.7 BUN/Creatinine Ratio 14.2 Random Glucose 84 mg/dl Calcium Level 8.2 mg/dl Total Bilirubin 1.0 mg/dl Aspartate Amino Transf (AST/SGOT) 42 U/L Alanine Aminotransferase (ALT/SGPT) 24 U/L Alkaline Phosphatase 153 U/L Total Protein 6.2 gm/dl Albumin 2.6 gm/dl Globulin 3.6 gm/dl Albumin/Globulin Ratio 0.7 Imaging: Chest x-ray on admission was not notable for CHF EKG: Her initial electrocardiogram showed atrial fibrillation with a heart rate of 80 bpm, no acute changes Telemetry reviewed: Echocardiography on December 26, 2017 showed a small left ventricular cavity with severe concentric left ventricular hypertrophy, normal left ventricular systolic function ejection fraction 55-60%. There was moderate to severe TR and mild pulmonary hypertension. There was a trivial pericardial effusion. Assessment & Plan 1. CHF: This appears to be diastolic in nature, her left ventricular ejection fraction has improved and now appears normal based on her current echocardiogram. She does however have severe left ventricular hypertrophy. I believe she was noncompliant with fluid restriction on her recent cruise, and she will have to learn how to adjust her diuretics or her fluid intake to maintain fluid balance. She does weigh herself daily. She probably has very little leeway in her fluid status before she feels her congestive heart failure. At the moment she still may be a little bit fluid overloaded and I would continue diuresis, probably until her kidney function deteriorates or she develops hypotension. 2. Elevated troponin: Her enzymes were slightly elevated on admission, I believe this is related to demand ischemia with hypoxia. With normal coronary arteries at catheterization less than 6 months ago I would not consider further evaluation for coronary artery disease. 3. Atrial fibrillation: Her atrial fibrillation had been paroxysmal in the past , however now is considered permanent. It has not affected her left ventricular function evidently. It possibly contributes to her congestive heart failure but has been present for some time now and we would probably not be able to maintain sinus rhythm (which had been tried in the past). She should continue with anticoagulation. 4. Peripheral edema: She has peripheral edema which has been present for some time, possibly preceding her cruise but certainly worsening on the cruise. Part of it may be due to traveling, most of is probably due to excessive fluid intake, her tricuspid regurgitation is not helping but there is little we can do about that. Her edema is markedly improved but still present to a minor degree. That may help her guide the need for extra diuretics in the future. Thank you for allowing me to participate in her care.
[2017-12-28] MEDS ORDERED: TORSEMIDE 20 MG TAB PO STA (18:45)
--- NOTE | 2017-12-28 18:53 | Family Medicine Progress Note ---
Progress Note Date of Service Dec 28, 2017. Subjective Pt reports feeling better this morning, breathing better. Is up and brushing teeth in the bathroom initially. Per nurse, audibly wheezing overnight, however no duoneb treatment given. Returned to room later, pt receiving duoneb treatment, tolerating well. Denies fevers/chills. Denies chest pain. Says her leg swelling is improved. Eating , voiding well. Has lost at least 1kg since admission, cumulative output is - 2.5 L. ROS See HPI for pertinent positives and negatives. Medications Current Inpatient Medications Medications (Trade) Dose Ordered Sig/Amadeo Route Start Time Stop Time Status Last Admin Dose Admin Fluoxetine HCl (Prozac Cap) 20 mg DAILY PO 12/27/17 09:00 01/26/18 08:59 12/28/17 08:10 20 MG Levothyroxine Sodium (Synthroid Tab) 100 mcg DAILYBB PO 12/27/17 06:30 01/26/18 06:59 12/28/17 05:52 100 MCG Lisinopril (Zestril Tab) 20 mg DAILY PO 12/27/17 09:00 01/26/18 08:59 12/28/17 08:11 20 MG Lorazepam (Ativan Tab) 0.5 mg DAILY PRN PO 12/26/17 20:00 01/25/18 19:59 Potassium Chloride (Klor-Con M10) 10 meq DAILY PO 12/27/17 09:00 01/26/18 08:59 12/28/17 08:10 10 MEQ Torsemide (Demadex Tab) 20 mg DAILY PO 12/27/17 09:00 01/26/18 08:59 12/28/17 08:10 20 MG Apixaban (Eliquis Tab) 5 mg BID PO 12/26/17 22:00 01/25/18 21:59 12/28/17 08:10 5 MG Metoprolol Succinate (Toprol Xl Tab) 100 mg DAILY PO 12/27/17 09:00 01/26/18 08:59 12/28/17 08:10 100 MG Acetaminophen (Tylenol Tab) 650 mg Q4H PRN PO 12/26/17 20:15 01/25/18 20:14 12/27/17 21:31 650 MG Al Hydrox/Mg Hydrox/Simethicone (Maalox Max Susp) 15 ml Q4H PRN PO 12/26/17 20:15 01/25/18 20:14 Magnesium Hydroxide (Milk Of Magnesia Susp) 30 ml Q12H PRN PO 12/26/17 20:15 01/25/18 20:14 Ondansetron HCl (Zofran Inj) 4 mg Q6H PRN IV 12/26/17 20:15 01/25/18 20:14 Polyethylene (Miralax Powder Packet) 17 gm DAILY PRN PO 12/26/17 20:15 01/25/18 20:14 Miscellaneous (Iv Fluids Completed) 1 ea PRN PRN N/A 12/26/17 21:00 12/26/18 20:59 Menthol (Nice Blaire) 1 blaire [id number] PRN BLAIRE 12/27/17 12:45 01/26/18 12:44 12/27/17 13:59 1 BLAIRE Albuterol/ Ipratropium (Duoneb) 3 ml Q4R PRN INH 12/27/17 20:00 01/26/18 19:59 12/28/17 08:29 3 ML Objective Vital Signs Date Time Temp Pulse Resp B/P (MAP) Pulse Ox O2 Delivery O2 Flow Rate FiO2 12/28/17 16:00 Nasal Cannula 1.0 12/28/17 14:58 36.8 89 20 122/64 (83) 96 Nasal Cannula 1.0 12/28/17 12:00 Nasal Cannula 1.0 12/28/17 11:53 37.0 81 18 133/74 (93) 94 Room Air 12/28/17 08:30 75 20 94 Nasal Cannula 1.0 12/28/17 07:45 Nasal Cannula 1.0 12/28/17 07:30 36.8 75 18 129/79 (96) 96 Nasal Cannula 1.0 12/28/17 04:00 Nasal Cannula 1.0 12/28/17 04:00 36.6 77 16 119/74 (89) 95 Room Air 1.0 12/28/17 00:00 Nasal Cannula 1.0 12/27/17 20:28 37.5 83 42 134/84 (101) 95 Nasal Cannula 1.5 12/27/17 20:00 Nasal Cannula 1.0 Physical Exam Notes: GENERAL: Awake, alert, in no distress. Duoneb mask in place. Not in any distress. HENT: Normocephalic, atraumatic. EYES: Normal conjunctiva. Sclera non-icteric. RESPIRATORY: CTAB CARDIAC: Irregularly irregular, 70-80s. Extremities warm and well perfused. Pulses equal. ABDOMEN: Soft, non-distended. No tenderness to palpation. No rebound or guarding. No masses. LOWER EXTREMITIES: Calves are equal size bilaterally and non-tender. 1+ edema. No discoloration. NEURO: No motor deficits noted. SKIN: No rash or jaundice noted. Laboratory Results 12/28/17 06:12 Test 12/28/17 06:12 Anion Gap 6.0 mmol/L (3-11) Est Creatinine Clear Calc Drug Dose 44.1 ml/min Estimated GFR () 49.4 Estimated GFR (Non- 42.7 BUN/Creatinine Ratio 14.2 (10-20) Calcium Level 8.2 mg/dl (8.5-10.1) Total Bilirubin 1.0 mg/dl (0.2-1) Aspartate Amino Transf (AST/SGOT) 42 U/L (15-37) Alanine Aminotransferase (ALT/SGPT) 24 U/L (12-78) Alkaline Phosphatase 153 U/L (45-117) Total Protein 6.2 gm/dl (6.4-8.2) Albumin 2.6 gm/dl (3.4-5.0) Globulin 3.6 gm/dl (2.5-4.0) Albumin/Globulin Ratio 0.7 (0.9-2) Assessment and Plan 82F here for CHF exac with dyspnea on exertion PMH: HTN, HPL, Chronic diastolic dysfunction, Chronic AF, Hypothyroidism, Severe tricuspid regurge, Anxiety/depression, Cardiac cath 08/02 - normal coronaries PSH: C sxn x 2, BL cataract surgery, BL carpal tunnel release, Cholecystectomy 12/26 CXR: The heart remains enlarged. No focal lung consolidations to suggest pneumonia. No evidence for pulmonary edema. No pleural effusions. No pneumothorax. 12/26 EKG: AF, ant and lat Q wvs, L axis - no significant morphological change from 12/26 ECHO: - Small LV cavity. Severe concentric LVH. - Normal LV systolic function. LVEF 55-60 %. No regional wall motion abnormalities. - Moderate to severe TR. Mild pulmonary hypertension. Estimated PASP 46 mmHg. - Trivial pericardial effusion - Compared with prior study on 03/30/2013: LVH now severe, tricuspid regurgitation moderate to severe PFT ordered by PCP in Jun was normal. Dyspnea on exertion likely due to Acute Diastolic CHF exac, r/o Acute COPD exacerbation/? aspiration event -Echo done yesterday does show worsening LVH however no wall motion abnormalities. -Adding an extra daily dose of torsemide as long as kidneys tolerate, so far tolerating well. - troponin mildly elevated, also reports a chronic cough for several months ( neg for flu in ED), is a former smoker, PFT's ordered by PCP normal -Have ordered duonebs since pt says an inhaler has been helpful in the past, however has only received one treatment, and has not required further. Wheezing improved. Oxygenating well. - Appreciate cardiology consult and recommendations. Severe LVH - Cardiology consulted. - Consider sleep study as outpatient if already not done. - BP well controlled here Diarrhea, prior to admission - resolved -- may paint a viral picture of recent fatigue and dry cough as well. AFIB - Rate controlled. Cont eliquis 5 BID, Toprol 100 daily Hypothyroidism - cont synthroid CKD III - 1.20. creat improved from baseline, tolerating extra daily dose of torsemide well. HTN - cont Toprol and lisinopril Anxiety - cont fluoxetine, lorazepam 0.5mg tab daily prn DVT ppx: Eliquis 5 BID (home dose) Code: FULL Dispo: Tele. Likely discharge home tomorrow if diuresis stable. Resident Tracking Resident Involvement: Resident Care Provided Care Provided: Adult Hospital Medicine Reviewed: Pt Seen/Exam by Me History breathing much improved urinated well yesterday Constitutional: denies: fever Respiratory: negative: cough, short of breath Cardiovascular: denies chest pain General Appearance: no apparent distress Respiratory: lungs clear, no respiratory distress Cardiovascular: irregularly irregular Neurologic/Psychiatric: alert, oriented x 3 Skin Characteristics: warm/dry Assessment/Plan Resident Physician Supervision Note: I independently interviewed and examined the patient and verified the mclean history and physical, reviewed labs and image studies, discussed the case with the resident Dr. Lance and agree with the findings and care plan.
[2017-12-28] MEDS: ACETAMINOPHEN 325 MG TAB PO PRN (20:38)
[2017-12-29] VITALS (7 sets, daily range): BP systolic 123–150; BP diastolic 71–99; PULSE 73–98; TEMP 36.6–37.2; O2SAT 92–95
[2017-12-29 06:14] LABS: CALCIUM 8.3 mg/dl (8.5-10.1); CREATININE 1.26 mg/dl (0.60-1.20); POTASSIUM 3.4 mmol/L (3.5-5.1)
[2017-12-29] MEDS: LEVOTHYROXINE 100 MCG TAB PO SCH (06:18)
[2017-12-29] MEDS: LISINOPRIL 20 MG TAB PO SCH (08:10)
[2017-12-29] MEDS: METOPROLOL SUCC 50MG EXT REL TAB PO SCH (08:10)
[2017-12-29] MEDS: APIXABAN 2.5 MG TAB PO SCH (08:10)
[2017-12-29] MEDS: POTASSIUM CHLORIDE 10 MEQ TABCR PO SCH (08:10)
[2017-12-29] MEDS: TORSEMIDE 20 MG TAB PO SCH (08:10)
[2017-12-29] MEDS: FLUOXETINE HCL 20 MG CAP PO SCH (08:10)
[2017-12-29] MEDS ORDERED: POTASSIUM CHLORIDE 20 MEQ TABCR PO ONE (09:00)
--- NOTE | 2017-12-29 09:01 | Clinical Documentation Query ---
CLINICAL DOCUMENTATION QUERY Patient's initial pulse oximetry was 85% and relieved with O2, nebulizer therapy, and Lasix 20mg IV. In your clinical opinion is this patient being managed for: ( x ) Acute respiratory failure with hypoxia, resolved ( ) Not Agree ( ) Other explanation of clinical findings (Please Explain) ( ) Unable to determine (Please Define) ( ) Need to Discuss The medical record reflects the following clinical findings, treatment, and risk factors. Clinical Indicators: As above Treatment: As above Risk Factors: CHF, HTN, COPD Please clarify and document your clinical opinion in the progress notes and discharge summary. Terms such as "probable", "suspected", "likely", "questionable", "possible", or "still to be ruled out" are acceptable. IF IN AGREEMENT, YOU MUST DOCUMENT ABOVE DIAGNOSTIC STATEMENT IN DAILY PROGRESS NOTES AND DISCHARGE SUMMARY. This document is not part of the patient's record. Thank You, Alethea Aguilera RN [phone]
--- NOTE | 2017-12-29 09:37 | CARDIOLOGY PROGRESS NOTE ---
DATE: 12/29/2017 TIME: 08:30 a.m. SUBJECTIVE: She believes that her breathing is back to normal sitting in bed, but she has not yet tried walking in the hallway. She denies orthopnea, syncope, near syncope, palpitations, or chest discomfort. She believes that her edema has improved significantly. Her diarrhea has also resolved and she has not had any further dry heaving. She would like to go home soon and is hoping to go home later today. She states that she is apprehensive; however, concerned that she may feel short of breath with walking. She has not yet attempted this. OBJECTIVE: VITAL SIGNS: Temperature 36.6 degrees, heart rate 73 beats per minute, respiratory rate 18, blood pressure 139/91 mmHg, and oxygen saturation is 93% on room air. I's and O's negative 410 mL yesterday, but she admits that not all the urine has been collected. Weight 100.4 kg. GENERAL: No acute distress. She is alert. NECK: Mild JVD. CARDIAC EXAM: No ventricular heave. Irregularly irregular. No audible murmurs, rubs or gallops. LUNGS: Bilateral wheezing. No rales. ABDOMEN: Soft, nontender, and nondistended. Normoactive bowel sounds. EXTREMITIES: No cyanosis. Trace bilateral lower extremity edema. PSYCHIATRIC: Affect appears appropriate. MEDICATIONS: Include Eliquis 5 mg p.o. b.i.d., lisinopril 20 mg daily, metoprolol succinate 100 mg daily, potassium chloride 40 mEq x1 and otherwise 10 mEq daily, and torsemide 20 mg p.o. daily. She received 2 doses of torsemide 20 mg yesterday. Telemetry personally reviewed. Atrial fibrillation. She did have a 6-beat wide complex episode of approximately 100 beats per minute, which may represent aberrancy versus idioventricular rhythm. No significant pauses. LABORATORY DATA: Sodium 137, potassium 3.4, BUN 20, and creatinine 1.26. Peak troponin was 0.082. ProBNP was 2224. Echocardiogram report on 12/26/2017, small left ventricular cavity with severe LVH. LV systolic function was normal. EF 55%-60%. Normal wall motion. Moderate to severe TR. Mild pulmonary hypertension with an RVSP of 46. Sclerotic aortic valve without stenosis. ASSESSMENT AND PLAN: 1. Acute on chronic diastolic congestive heart failure: She still appears mildly hypervolemic. We will give another dose of torsemide 20 mg in the afternoon. Continue low sodium diet, daily weights and strict I's and O's. Given the fact that she was doing well as an outpatient prior to her ____, would recommend that she go home on the same diuretics that she had been on chronically. 2. Elevated troponin: Only slightly elevated and was not diagnostic of myocardial infarction. She did not present with acute coronary syndrome. She does not have coronary artery disease as she had a cardiac catheterization performed in July of 2017. 3. Pulmonary hypertension: She had moderate pulmonary hypertension noted on cardiac catheterization and her RVSP is mildly elevated currently. Her pulmonary hypertension may have been in part due to elevated left-sided filling pressures, but not likely completely explained by left heart failure as her LVEDP was only mildly elevated at that time. 4. Left ventricular hypertrophy: Continue blood pressure management. 5. Cardiomyopathy: She had a nonischemic cardiomyopathy; however, most recent LV systolic function reported as normal. Continue ELIANE inhibitor and beta fernanda. 6. Tricuspid regurgitation: Continue to follow. 7. Atrial fibrillation: Permanent atrial fibrillation. Adequately rate controlled. She is asymptomatic. Continue beta fernanda. Continue anticoagulation for stroke risk reduction. 8. Disposition: Would recommend that she ambulate in the hallways prior to discharge. She still has wheezing. It may be in part due to congestive heart failure; however, she appears only to be mildly hypervolemic at this time. Other treatment for wheezing will be deferred to primary service. Recommend close followup in the outpatient cardiology office.
[2017-12-29] MEDS: ALBUT/IPRATROP 3MG/0.5MG NEB 3 ML VIAL INH PRN (10:11)
[2017-12-29] MEDS ORDERED: TORSEMIDE 20 MG TAB PO SCH (14:00)
--- NOTE | 2017-12-29 16:41 | Discharge Instructions ---
Discharge Instructions Date of Service Dec 29, 2017. Admission Reason for Admission: Chf Exacerbation Discharge Discharge Diagnosis / Problem: CHF exacerbation Discharge Goals Goal(s): Decrease discomfort, Improve function, Increase independence, Improve disease control, Learn about illness, Diagnostic testing Activity Recommendations Activity Limitations: per Instructions/Follow-up section . Instructions / Follow-Up Instructions / Follow-Up You were admitted for shortness of breath due to too much fluid backed up in your lungs due to your heart failure condition. Keep taking your medications as prescribed by Dr. Hathaway and your primary care physician, no changes were made. An appointment has been made at Dr. Hathaway's office, see below. Call your Primary Care doctor if any of the following symptoms or problems start or get worse: * Shortness of breath or difficulty breathing * Wake up at night short of breath * Chest pain * Cough * Swelling of your hands, feet, or legs * More fatigued or tired with your normal activity * Palpitations - sudden fast heart beats WEIGHT * Weigh yourself every morning after using the bathroom. * Use the same scale. * Wear the same amount of clothing. * Write your weight down on a chart. * Call your Primary Care doctor if you gain more than 2-3 pounds in 1-2 days. MEDICATIONS * Use this discharge instruction sheet for medication instructions. * Take your medications at the time your doctor ordered. * Do not skip a dose of your medicines. * If you miss a dose of medicine, take it as soon as possible, but DO NOT DOUBLE A DOSE. * Read your medicine information when you get home. * Know all of the side effects of your medicine. If in doubt, ask your pharmacist * Call your Primary Care doctor's office if you have any side effects. * Be sure all of your doctors know what medicine and herbs you take (including cold, flu, and herbal medicine). Take the following with you to your follow-up doctor appointments: * Weight Chart * Medication List * List of questions Do not drink excessive alcohol, beer or wine. Current Hospital Diet Patient's current hospital diet: AHA Diet (Heart Healthy) Discharge Diet Recommended Diet: AHA Diet (Heart Healthy), Low Sodium Diet (2gm Na) Pending Studies Studies pending at discharge: no Laboratory Results Hemoglobin A1c Test 12/12/17 11:15 Range/Units Estimated Average Glucose 151 mg/dl Hemoglobin A1c 6.9 H 4.5-5.6 % Medical Emergencies . Who to Call and When: Call 911 or go to the Emergency Room if: * If at any time you feel your situation is an emergency * You have tightness or pain in your chest that does not go away with rest or Nitroglycerin * You are very short of breath even with rest . Non-Emergent Contact Non-Emergency issues call your: Primary Care Provider, [facility] . . "Provider Documentation" section prepared by Kristal Lance. .
--- NOTE | 2017-12-29 21:51 | Discharge Summary ---
Discharge Summary Date of Service Dec 29, 2017. Discharge Summary Admission Date: Dec 28, 2017 at 11:59 Discharge Date: Dec 29, 2017 Discharge Disposition: Home Principal Diagnosis: CHF Exacerbation Problems/Secondary Diagnoses: Severe LVH AFIB Hypothyroidism CKD III HTN Anxiety Immunizations: Have You Had Influenza Vaccine: Yes Influenza Vaccine Date: Aug 26, 2007 History of Tetanus Vaccine?: Yes Tetanus Immunization Date: Apr 26, 1999 History of Pneumococcal: No History of Hepatitis B Vaccine: No Medication Reconciliation Continued Medications: Acetaminophen (Tylenol) 500 Mg Tab 500 MG PO BID Apixaban (Eliquis) 5 Mg Tab 5 MG PO BID Fluoxetine (Prozac) 20 Mg Cap 20 MG PO DAILY Levothyroxine Sodium (Levothyroxine Sodium) 100 Mcg Tab 100 MCG PO DAILY Lisinopril (Lisinopril) 20 Mg Tab 20 MG PO DAILY Lorazepam (Ativan) 0.5 Mg Tab 0.5 MG PO DAILY PRN for PRN, TAB Metoprolol Succinate (Metoprolol Succinate ER) 100 Mg Tabcr 100 MG PO DAILY Multivitamin (Multivitamin) Tab 1 TAB PO DAILY Potassium Chloride (Micro-K Ext Rel) 10 Meq Capcr 10 MEQ PO DAILY, 0 Refills Torsemide (Demadex) 20 Mg Tab 20 MG PO DAILY, TAB Discharge Exam Pt reports feeling improved today on day of discharge, slept well overnight, anxious to return home. Has no new complaints, eating and voiding well. ROS See HPI for pertinent positives and negatives. PE GENERAL: Awake, alert, in no distress. HENT: Normocephalic, atraumatic. EYES: Normal conjunctiva. Sclera non-icteric. RESPIRATORY: CTAB CARDIAC: Irregularly irregular, 70-80s. Extremities warm and well perfused. Pulses equal. ABDOMEN: Soft, non-distended. No tenderness to palpation. No rebound or guarding. No masses. LOWER EXTREMITIES: Calves are equal size bilaterally and non-tender. 1+ edema. No discoloration. NEURO: No motor deficits noted. SKIN: No rash or jaundice noted. Hospital Course Ms. Back was admitted for acute respiratory failure with hypoxia after falling ill upon return from a cruise trip where she experienced diarrheal illness and then later shortness of breath and wheezing. Pt reports having gained ten pounds in that week prior. Hypoxia was found to be due to acute on chronic diastolic congestive heart failure and we treated her with oxygen and diuresis, with nebulized albuterol for symptomatic benefit. Pt was seen by cardiology during her admission, telemetry was reviewed and an echocardiogram were performed. Andrea remains in Atrial fibrillation, rate controlled and appropriately anticoagulated. Her echo on 12Mar showed severe LVH, normal wall motion, EF 55%-60%. Normal wall motion. Moderate to severe TR. Mild pulmonary hypertension with an RVSP of 46. Sclerotic aortic valve without stenosis. Cardiology recommendations include: Continue low sodium diet, daily weights with no change to her diuretics that she had been on chronically, given that she had been doing well. An appointment was made for the patient for 30Mar at the Heart Failure clinic. Ms. Back did not present with symptoms of acute coronary syndrome despite having had a slightly elevated troponin. Her last cardiac catheterization in Jul 2017 showed no coronary artery disease. Ms. Back has moderate pulmonary hypertension, likely multifactorial in nature in part due to elevated left-sided filling pressures, but not likely completely explained by left heart failure as her LVEDP was only mildly elevated at that time. Upon review of outpatient records, Ms. Back is s/p UPPP for GALEN, but a repeat sleep study was never performed. PCP may consider a repeat sleep study to look for anything contributory. Blood pressure here was appropriate, and we recommend to continue her current medications. On day of discharge Ms. Back was much improved and given discharge instructions and follow up appointment information. It was a pleasure participating in her care. Total Time Spent: Greater than 30 minutes This includes examination of the patient, discharge planning, medication reconciliation, and communication with other providers. Discharge Instructions Please refer to the electronic Patient Visit Report (Discharge Instructions) for additional information. Additional Copies To Phillip Kim M.D. Resident Tracking Resident Involvement: Resident Care Provided Care Provided: Adult Hospital Medicine Reviewed: Pt Seen/Exam by Me History breathing is good no diarrhea Constitutional: denies: fever Respiratory: negative: short of breath Cardiovascular: denies chest pain Gastrointestinal/Abdominal: negative: abdominal pain General Appearance: no apparent distress Respiratory: lungs clear, no respiratory distress Cardiovascular: irregularly irregular Neurologic/Psychiatric: alert, oriented x 3 Skin Characteristics: warm/dry Assessment/Plan Resident Physician Supervision Note: I independently interviewed and examined the patient and verified the mclean history and physical, reviewed labs and image studies, discussed the case with the resident Dr. Casi and agree with the findings and care plan. Time spent in discharge 35 min
== END 2017-12-29 17:37 | disposition home or self-care (01) | DRG 291 ==
LOC: C.EDB 15:24 → C.MED 20:05 → UNDOADMOB 20:05 → C.MED 20:06 → ENRESERV 20:39 → OBSVTOIN 12-28 11:59
PROVIDERS: ADMIT Internal Medicine; ATTEND Family Medicine
DX: I13.0 Hypertensive heart and chronic kidney disease with heart failure and stage 1 through stage 4 chronic kidney disease, or unspecified chronic kidney disease (principal); I50.33 Acute on chronic diastolic (congestive) heart failure; J96.01 Acute respiratory failure with hypoxia; I24.8 Other forms of acute ischemic heart disease; R19.7 Diarrhea, unspecified; R60.0 Localized edema; I27.29 Other secondary pulmonary hypertension; I07.1 Rheumatic tricuspid insufficiency; I42.9 Cardiomyopathy, unspecified; I48.2 Chronic atrial fibrillation; N18.3 Chronic kidney disease, stage 3 (moderate); E03.9 Hypothyroidism, unspecified; F41.9 Anxiety disorder, unspecified; F32.9 Major depressive disorder, single episode, unspecified; Z91.11 Patient's noncompliance with dietary regimen; Z87.891 Personal history of nicotine dependence; Z79.01 Long term (current) use of anticoagulants; Z79.899 Other long term (current) drug therapy; Z88.5 Allergy status to narcotic agent; Z91.040 Latex allergy status

== ENCOUNTER → 2018-01-05 | Outpatient (CLI) | payer OTHER, MEDICARE ==
[~2018-01-05] MED LIST changes: -BIOT1CAP3 PO; +LEVO100T7 PO; -LEVO75TA PO; -LISI-461 PO; +LSN20 PO; +TPRSR/100 PO; -TPRSR/25 PO
[2018-01-05 18:21] LABS: BLOOD UREA NITROGEN 20 mg/dl (7-18); CALCIUM 9.5 mg/dl (8.5-10.1); CARBON DIOXIDE 30 mmol/L (21-32); CREATININE 1.52 mg/dl (0.60-1.20); GLUCOSE 175 mg/dl (70-99); POTASSIUM 3.5 mmol/L (3.5-5.1); SODIUM 138 mmol/L (136-145)
== END | disposition home or self-care (01) ==
LOC: C.LABSPEC 17:48
PROVIDERS: ATTEND Internal Medicine
DX: I50.9 Heart failure, unspecified (principal)

== ENCOUNTER → 2018-01-12 | Outpatient (CLI) | payer OTHER, MEDICARE ==
[2018-01-12 16:45] LABS: BLOOD UREA NITROGEN 21 mg/dl (7-18); CALCIUM 9.6 mg/dl (8.5-10.1); CARBON DIOXIDE 28 mmol/L (21-32); CREATININE 1.42 mg/dl (0.60-1.20); GLUCOSE 128 mg/dl (70-99); POTASSIUM 3.9 mmol/L (3.5-5.1); SODIUM 138 mmol/L (136-145)
== END | disposition home or self-care (01) ==
LOC: C.LABBFT 12:07
PROVIDERS: ATTEND Internal Medicine Cardiovascular Disease
DX: I11.0 Hypertensive heart disease with heart failure (principal); I50.32 Chronic diastolic (congestive) heart failure; R06.09 Other forms of dyspnea; I48.91 Unspecified atrial fibrillation; R07.89 Other chest pain; I42.9 Cardiomyopathy, unspecified; I31.3 Pericardial effusion (noninflammatory)

== ENCOUNTER → 2018-01-19 | Outpatient (CLI) | payer OTHER, MEDICARE | END | disposition home or self-care (01) | LOC: C.RC 09:30 | PROVIDERS: ATTEND Internal Medicine | DX: R06.00 Dyspnea, unspecified (principal) ==